=== PATIENT | female | born 1930 | race Caucasian/White ===

== ENCOUNTER 2017-10-06 02:45 | Inpatient (IN) | payer MEDICARE ==
[~2017-10-06] VITALS: Ht 160 cm; Wt 80.4 kg
[2017-10-06] MEDS ORDERED: MIRT15TA3 PO (03:35)
[2017-10-06] MEDS ORDERED: PROP15DR40 OU (03:35)
[2017-10-06] MEDS ORDERED: AMLO5TAB2 PO (03:35)
[2017-10-06] MEDS ORDERED: PRAM0.125 PO (03:35)
[2017-10-06] MEDS ORDERED: HYDR-963 PO (03:35)
[2017-10-06] MEDS ORDERED: DICL100G18 TP (03:35)
[2017-10-06] MEDS ORDERED: INSU100I13 SQ (03:35)
[2017-10-06] MEDS ORDERED: FURO40TA4 PO (03:35)
[2017-10-06] MEDS ORDERED: IMMU40VI IJ (03:35)
[2017-10-06] MEDS ORDERED: BUSP30TA PO (03:35)
[2017-10-06] MEDS ORDERED: ACET325T9 PO (03:35)
[2017-10-06] MEDS ORDERED: LORA-434 PO (03:35)
[2017-10-06] MEDS ORDERED: METO-247 PO (03:35)
[2017-10-06] MEDS ORDERED: ALBU8.5H8 INH (03:35)
[2017-10-06] MEDS ORDERED: SERT100T PO (03:35)
[2017-10-06] MEDS ORDERED: LOVA20TA2 PO (03:35)
[2017-10-06] MEDS ORDERED: NEOM10SO7 AD (03:35)
[2017-10-06] MEDS ORDERED: MELA3TAB2 PO (03:35)
[2017-10-06] MEDS ORDERED: PENT100C PO (03:35)
[2017-10-06] MEDS ORDERED: CRAN1TAB6 PO (03:35)
[2017-10-06] MEDS ORDERED: LACT1CAP6 PO (03:35)
[2017-10-06] MEDS ORDERED: PSYL1CAP4 PO (03:35)
[2017-10-06] MEDS ORDERED: PANT40TA5 PO (03:35)
[2017-10-06] MEDS ORDERED: POLY17PO5 PO (03:35)
[2017-10-06] MEDS ORDERED: IPRA3AMP NEB (03:35)
[2017-10-06 04:45] VITALS: BP 126/81
[2017-10-06] MEDS ORDERED: ACETAMINOPHEN 325 MG TABLET PO PRN ×2 (05:00→14:00)
[2017-10-06] MEDS ORDERED: MAG HYDROX/AL HYDROX/SIMETH 30 ML ORAL.SUSP PO PRN (05:00)
[2017-10-06] MEDS ORDERED: METHYL SALICYLATE/MENTHOL TOPICAL OINTMENT 29GM TUBE. TP PRN (05:00)
[2017-10-06] MEDS ORDERED: MAGNESIUM HYDROXIDE 2,400 MG/30 ML ORAL.SUSP. PO PRN (05:00)
[2017-10-06] MEDS ORDERED: LORazepam TOPICAL 0.5 MG/ML GEL TP PRN (05:45)
[2017-10-06] MEDS ORDERED: MAGN400C PO (05:49)
[2017-10-06] MEDS ORDERED: CALC-157 PO (05:49)
[2017-10-06 08:38] LABS: BASO # 0.1 x10^3/uL (0.0-0.2); BASO % 1 % (0-3); EOS # 0.2 x10^3/uL (0.0-0.7); EOS % 2 % (0-3); HEMATOCRIT 34.2 % (36.0-47.0); HEMOGLOBIN 11.2 g/dL (12.0-15.5); LYMPH # 1.8 x10^3/uL (1.0-4.8); LYMPH % 27 % (24-48); MEAN CORPUSCULAR HEMOGLOBIN 27 pg (25-35); MEAN CORPUSCULAR HGB CONC 33 g/dL (31-37); MEAN CORPUSCULAR VOLUME 82 fL (79-100); MONO # 0.8 x10^3/uL (0.0-1.1); MONO % 11 % (0-9); NEUT # 3.9 x10^3uL (1.8-7.7); NEUT % 59 % (31-73); PLATELET COUNT 344 x10^3/uL (140-400); RED BLOOD COUNT 4.15 x10^6/uL (3.50-5.40); RED CELL DISTRIBUTION WIDTH 15.9 % (11.5-14.5); WHITE BLOOD COUNT 6.7 x10^3/uL (4.0-11.0)
[2017-10-06] MEDS: busPIRone 15 MG TABLET. PO SCH ×2 (08:54→20:40)
[2017-10-06 09:00] LABS: ALBUMIN 2.8 g/dL (3.4-5.0); ALBUMIN/GLOBULIN RATIO 0.8 (1.0-1.7); CALCIUM 8.8 mg/dL (8.5-10.1); CREATININE 0.9 mg/dL (0.6-1.0); GFR 59.7; MAGNESIUM 1.7 mg/dL (1.8-2.4); POTASSIUM 3.2 mmol/L (3.5-5.1); TOTAL BILIRUBIN 0.5 mg/dL (0.2-1.0); TOTAL PROTEIN 6.3 g/dL (6.4-8.2)
[2017-10-06] MEDS ORDERED: SERTRALINE 100 MG TABLET. PO SCH (09:00)
[2017-10-06 11:09] LABS: THYROID STIM HORMONE (TSH) 3.186 uIU/mL (0.358-3.740)
[2017-10-06 13:09] LABS: T3 TOTAL 73 ng/dL (71-180); THYROXINE 6.4 ug/dL (4.5-12.0)
--- NOTE | 2017-10-06 13:58 | PDOC1 ---
History of Present Illness Reason for Visit: SI History of Present Illness Pt sent to [facility] for evaluation in SBH unit due to suicidal ideation and anxiety. Pt is a poor historian, and nursing staff/chart yields most of the information. Pt recently hospitalized at [facility]. She has mostly been c/o her back pain and requests to resume her PRN hydrocodone. Per nursing, she has been crying out inpain. Chief Complaint: SI Allergies: Coded Allergies: Cephalosporins (Verified Allergy, Intermediate, 10/06/17) Penicillins (Verified Allergy, Intermediate, 10/06/17) Sulfa (Sulfonamide Antibiotics) (Verified Allergy, Intermediate, 10/06/17) codeine (Verified Allergy, Intermediate, 10/06/17) lidocaine (Verified Allergy, Intermediate, 10/06/17) Past Medical History Cardiac: AFIB, HTN Pulmonary: Other (Sleep apnea) Psych: Anxiety, Depression Musculoskeletal: low back pain (Chronic) Endocrine: Diabetes Past Surgical History: No pertinent history Family History: No pertinent hx Past Social History Smoke: No Alcohol: none Drugs: None Review of Systems Review Of Systems ROS unobtainable due to pt's current mental status. Medications Current Medications Acetaminophen (Tylenol) 650 mg PRN Q6HRS PRN PO PAIN / TEMP Last administered on 10/06/17at 08:58; Start 10/06/17 at 05:00 Multi-Ingredient Ointment (Analgesic [place]) 1 marcio PRN QID PRN TP MUSCLE PAIN; Start 10/06/17 at 05:00 Al Hydroxide/Mg Hydroxide (Mylanta Plus Xs) 15 ml PRN AFTMEALHC PRN PO DYSPEPSIA; Start 10/06/17 at 05:00 Magnesium Hydroxide (Milk Of Magnesia) 2,400 mg PRN QHS PRN PO CONSTIPATION; Start 10/06/17 at 05:00 Lorazepam (Ativan) 1 mg PRN Q6HRS PRN TP ANXIETY / AGITATION; Start 10/06/17 at 05:45 Sertraline HCl (Zoloft) 100 mg DAILY PO Last administered on 10/06/17at 08:54; Start 10/06/17 at 09:00 Buspirone HCl (Buspar) 30 mg BID PO Last administered on 10/06/17at 08:54; Start 10/06/17 at 09:00 Melatonin 3 mg PRN QHS PRN PO INSOMNIA; Start 10/06/17 at 06:00 Mirtazapine (Remeron) 7.5 mg QHS PO ; Start 10/06/17 at 21:00 Olanzapine (ZyPREXA ZYDIS) 1.25 mg PRN Q2HR PRN PO PSYCHOSIS; Start 10/06/17 at 05:45 Active Scripts Active Reported Magnesium (Magnesium Oxide) 400 Mg Capsule 1 Cap PO DAILY Calcium 500 + Vit D 200 Tablet (Calcium Carbonate/Vitamin D3) 1 Each Tablet 1 Each PO DAILY Metamucil Plus Calcium Capsule (Psyllium Husk/Ca Carbonate) 1 Each Capsule 2 Each PO PRN BID PRN Miralax (Polyethylene Glycol 3350) 17 Gm Powd.pack 17 Gm PO PRN DAILY PRN Melatonin 3 Mg Tablet 3 Mg PO PRN QHS PRN Ativan (Lorazepam) 1 Mg Tablet 1 Mg PO PRN Q6HRS PRN Njsibhds-Jgkjkxzoa-Ql Ear Soln (Neomycin/Polymyxin B Sulf/Hc) 10 Ml Solution 2 Drp AD PRN QID PRN Duoneb 0.5-3(2.5) Mg/3 Ml (Albuterol/Ipratropium) 3 Ml Ampul.neb 3 Ml NEB PRN Q6HRS PRN Proair Hfa Inhaler (Albuterol Sulfate) 8.5 Gm Hfa.aer.ad 2 Puff INH PRN Q4HRS PRN [place] 10-325 Tablet (Hydrocodone Bit/Acetaminophen) 1 Each Tablet 1 Tab PO PRN Q6HRS PRN Tylenol (Acetaminophen) 325 Mg Tablet 650 Mg PO PRN Q4HRS PRN Zoloft (Sertraline Hcl) 100 Mg Tablet 100 Mg PO DAILY Elmiron (Pentosan Polysulfate Sodium) 100 Mg Capsule 100 Mg PO BID Mirapex (Pramipexole Di-Hcl) 0.125 Mg Tablet 0.125 Mg PO DAILY@1800 Pantoprazole Sodium 40 Mg Tablet.dr 40 Mg PO DAILYAC Systane 0.3-0.4% Eye Drops (Propylene Glycol/Peg 400) 15 Ml Drops 1 Drp OU BID Mirtazapine 15 Mg Tablet 7.5 Mg PO QHS Metoprolol Succinate ( Xl ) (Metoprolol Succinate) 100 Mg Tab.er.24h 100 Mg PO QHS Lovastatin 20 Mg Tablet 20 Mg PO QHS Probiotic (Lactobacillus Acidophilus) 1 Each Capsule 1 Each PO BIDWMEALS Lantus Solostar (Insulin Glargine,Hum.rec.anlog) 100 Unit/1 Ml Insuln.pen 10 Unit SQ DAILY Gamunex-C (Immune Glob,Dalia Caprylate(IgG)) 40 Gm/400 Ml Vial 30 Gm IJ MONTHLY last dose 09/04/17 Furosemide 40 Mg Tablet 40 Mg PO DAILY Voltaren (Diclofenac Sodium) 100 Gm Gel..gram. 1 Marcio TP QID Cranberry Tablet (Cranberry Conc/C/Bacill Coag) 1 Each Tablet 1 Each PO DAILY Buspirone Hcl 30 Mg Tablet 30 Mg PO BID Amlodipine Besylate 5 Mg Tablet 5 Mg PO DAILY Exam Vital Signs Vital Signs Date Time Temp Pulse Resp B/P (MAP) Pulse Ox O2 Delivery O2 Flow Rate FiO2 10/06/17 04:45 97.5 78 18 126/81 (96) 96 General Appearance: Alert, Cooperative, mild distress HEENT: Atraumatic, PERRLA, EOMI, Mucous membr. moist/pink, Other (Neck supple, no JVD) Respiratory: Clear to auscultation, Normal air movement Heart: Other (Irregularly irregular, no murmur noted) Abdominal: Normal bowel sounds, Soft, No tenderness, No hepatospenomegaly, No masses Extremities: No edema, Normal pulses, No tenderness/swelling Skin: No rashes Neuro: Other (NO grossly focal abnormalities) Psych/Mental Status: Other (Pt crying, states she must have a pain pill, she can't live with the pain.) Assessment/Plan Assessment/Plan 1. Depression w/ SI: Per Dr. Santiago. 2. Hypokalemia: Start KCL 20 meq BID since pt on daily Lasix. 3. DM: Resume home meds, ac/hs accuchecks. 4. Chronic back pain; Resume home dose of hydrocodone. 5. DVT proph: Pt is not on anticoagulation even with afib, would not recommend anticoagulation for DVT proph unless pt completely bed-bound COURSE Allergies Coded Allergies Type Severity Reaction Last Updated Verified Cephalosporins Allergy Intermediate 10/06/17 Yes Penicillins Allergy Intermediate 10/06/17 Yes Sulfa (Sulfonamide Antibiotics) Allergy Intermediate 10/06/17 Yes codeine Allergy Intermediate 10/06/17 Yes lidocaine Allergy Intermediate 10/06/17 Yes Laboratory Tests Test 10/06/17 08:00 10/06/17 08:13 White Blood Count 6.7 x10^3/uL (4.0-11.0) Red Blood Count 4.15 x10^6/uL (3.50-5.40) Hemoglobin 11.2 g/dL (12.0-15.5) Hematocrit 34.2 % (36.0-47.0) Mean Corpuscular Volume 82 fL (79-100) Mean Corpuscular Hemoglobin 27 pg (25-35) Mean Corpuscular Hemoglobin Concent 33 g/dL (31-37) Red Cell Distribution Width 15.9 % (11.5-14.5) Platelet Count 344 x10^3/uL (140-400) Neutrophils (%) (Auto) 59 % (31-73) Lymphocytes (%) (Auto) 27 % (24-48) Monocytes (%) (Auto) 11 % (0-9) Eosinophils (%) (Auto) 2 % (0-3) Basophils (%) (Auto) 1 % (0-3) Neutrophils # (Auto) 3.9 x10^3uL (1.8-7.7) Lymphocytes # (Auto) 1.8 x10^3/uL (1.0-4.8) Monocytes # (Auto) 0.8 x10^3/uL (0.0-1.1) Eosinophils # (Auto) 0.2 x10^3/uL (0.0-0.7) Basophils # (Auto) 0.1 x10^3/uL (0.0-0.2) Sodium Level 137 mmol/L (136-145) Potassium Level 3.2 mmol/L (3.5-5.1) Chloride Level 99 mmol/L (98-107) Carbon Dioxide Level 31 mmol/L (21-32) Anion Gap 7 (6-14) Blood Urea Nitrogen 15 mg/dL (7-20) Creatinine 0.9 mg/dL (0.6-1.0) Estimated GFR (Cockcroft-Gault) 59.7 BUN/Creatinine Ratio 17 (6-20) Glucose Level 142 mg/dL (70-99) Calcium Level 8.8 mg/dL (8.5-10.1) Magnesium Level 1.7 mg/dL (1.8-2.4) Iron Level 21 ug/dL (50-170) Total Iron Binding Capacity 378 ug/dL (250-450) Iron Saturation 6 % (15-34) Total Bilirubin 0.5 mg/dL (0.2-1.0) Aspartate Amino Transf (AST/SGOT) 13 U/L (15-37) Alanine Aminotransferase (ALT/SGPT) 15 U/L (14-59) Alkaline Phosphatase 49 U/L (46-116) Total Protein 6.3 g/dL (6.4-8.2) Albumin 2.8 g/dL (3.4-5.0) Albumin/Globulin Ratio 0.8 (1.0-1.7) Triglycerides Level 97 mg/dL (0-150) Cholesterol Level 133 mg/dL (0-200) LDL Cholesterol, Calculated 71 mg/dL (0-100) VLDL Cholesterol, Calculated 19 mg/dL (0-40) Non-HDL Cholesterol Calculated 90 mg/dL (0-129) HDL Cholesterol 43 mg/dL (40-60) Cholesterol/HDL Ratio 3.0 Thyroid Stimulating Hormone (TSH) 3.186 uIU/mL (0.358-3.740) Thyroxine (T4) 6.4 ug/dL (4.5-12.0) Total Triiodothyronine 73 ng/dL (71-180) Glucose (Fingerstick) 144 mg/dL (70-99) Current Medications Medications (Trade) Dose Ordered Sig/Shy Route PRN Reason Start Time Stop Time Status Last Admin Dose Admin Acetaminophen (Tylenol) 650 mg PRN Q6HRS PRN PO PAIN / TEMP 10/06/17 05:00 10/06/17 08:58 Multi-Ingredient Ointment (Analgesic [place]) 1 marcio PRN QID PRN TP MUSCLE PAIN 10/06/17 05:00 Al Hydroxide/Mg Hydroxide (Mylanta Plus Xs) 15 ml PRN AFTMEALHC PRN PO DYSPEPSIA 10/06/17 05:00 Magnesium Hydroxide (Milk Of Magnesia) 2,400 mg PRN QHS PRN PO CONSTIPATION 10/06/17 05:00 Lorazepam (Ativan) 1 mg PRN Q6HRS PRN TP ANXIETY / AGITATION 10/06/17 05:45 Sertraline HCl (Zoloft) 100 mg DAILY PO 10/06/17 09:00 10/06/17 08:54 Buspirone HCl (Buspar) 30 mg BID PO 10/06/17 09:00 10/06/17 08:54 Melatonin 3 mg PRN QHS PRN PO INSOMNIA 10/06/17 06:00 Mirtazapine (Remeron) 7.5 mg QHS PO 10/06/17 21:00 Olanzapine (ZyPREXA ZYDIS) 1.25 mg PRN Q2HR PRN PO PSYCHOSIS 10/06/17 05:45 Vital Signs Date Time Temp Pulse Resp B/P (MAP) Pulse Ox O2 Delivery O2 Flow Rate FiO2 10/06/17 04:45 97.5 78 18 126/81 (96) 96 CORBIN ROGERS MD October 06, 2017 13:58
[2017-10-06] MEDS ORDERED: ALBUTEROL SULFATE 8GM INHALER. INH PRN (14:00)
[2017-10-06] MEDS ORDERED: NEOMYCIN AD PRN (14:00)
[2017-10-06] MEDS ORDERED: IMMUNE GLOBULIN IJ SCH (14:00)
[2017-10-06] MEDS ORDERED: [UNRECOGNIZED DRUG - OTHER] AD PRN (14:00)
[2017-10-06] MEDS ORDERED: HYDROCORTISONE AD PRN (14:00)
[2017-10-06] MEDS ORDERED: POLYMYXIN B AD PRN (14:00)
[2017-10-06] MEDS ORDERED: IPRATRPIUM/ALBUTEROL 0.5/2.5MG 3 ML NEBU. NEB PRN (14:00)
[2017-10-06] MEDS: POTASSIUM CHLORIDE 20 MEQ TABLET.ER. PO SCH ×2 (14:12→21:37)
[2017-10-06] MEDS: HYDROcodone/APAP 10/325 1 TAB TABLET PO PRN ×2 (14:12→20:46)
[2017-10-06] MEDS ORDERED: ALBUTEROL SULFATE 2.5 MG/3 ML NEBU. NEB PRN (14:15)
[2017-10-06] MEDS ORDERED: POLYETHYLENE GLYCOL 3350 17 GM PACKET. PO PRN (14:30)
[2017-10-06 16:05] VITALS: BP 92/63
[2017-10-06 17:07] LABS: HEMOGLOBIN A1C 7.4 % (4.8-5.6)
[2017-10-06] MEDS: LACTOBACILLUS RHAMNOSUS GG 1 CAPSULE. PO SCH (17:29)
[2017-10-06] MEDS: PRAMIPEXOLE 0.25 MG TABLET. PO SCH (17:29)
[2017-10-06] MEDS: DICLOFENAC SODIUM 1% TOPICAL GEL 100GM TUBE. TP SCH ×2 (17:30→21:00)
--- NOTE | 2017-10-06 19:17 | PDOC ---
Exam Note: Red Note: Please also refer to the separate dictated note~for this date of service dictated separately.~Patient seen individually. Discussed the patient with Nursing staff reviewed the chart.~Reviewed interim history and current functioning. Reviewed vital signs,~Labs/ Radiology~and current medications noted below. Continue current treatment with the changes noted in the dictated addendum note Assessment: Vital Signs: Vital Signs Date Time Temp Pulse Resp B/P (MAP) Pulse Ox O2 Delivery O2 Flow Rate FiO2 10/06/17 16:07 18 10/06/17 16:05 98.2 72 92/63 (73) 94 Labs: Laboratory Tests Test 10/06/17 08:00 10/06/17 08:13 White Blood Count 6.7 x10^3/uL (4.0-11.0) Red Blood Count 4.15 x10^6/uL (3.50-5.40) Hemoglobin 11.2 g/dL (12.0-15.5) L Hematocrit 34.2 % (36.0-47.0) L Mean Corpuscular Volume 82 fL (79-100) Mean Corpuscular Hemoglobin 27 pg (25-35) Mean Corpuscular Hemoglobin Concent 33 g/dL (31-37) Red Cell Distribution Width 15.9 % (11.5-14.5) H Platelet Count 344 x10^3/uL (140-400) Neutrophils (%) (Auto) 59 % (31-73) Lymphocytes (%) (Auto) 27 % (24-48) Monocytes (%) (Auto) 11 % (0-9) H Eosinophils (%) (Auto) 2 % (0-3) Basophils (%) (Auto) 1 % (0-3) Neutrophils # (Auto) 3.9 x10^3uL (1.8-7.7) Lymphocytes # (Auto) 1.8 x10^3/uL (1.0-4.8) Monocytes # (Auto) 0.8 x10^3/uL (0.0-1.1) Eosinophils # (Auto) 0.2 x10^3/uL (0.0-0.7) Basophils # (Auto) 0.1 x10^3/uL (0.0-0.2) Sodium Level 137 mmol/L (136-145) Potassium Level 3.2 mmol/L (3.5-5.1) L Chloride Level 99 mmol/L (98-107) Carbon Dioxide Level 31 mmol/L (21-32) Anion Gap 7 (6-14) Blood Urea Nitrogen 15 mg/dL (7-20) Creatinine 0.9 mg/dL (0.6-1.0) Estimated GFR (Cockcroft-Gault) 59.7 BUN/Creatinine Ratio 17 (6-20) Glucose Level 142 mg/dL (70-99) H Hemoglobin A1c 7.4 % (4.8-5.6) H Calcium Level 8.8 mg/dL (8.5-10.1) Magnesium Level 1.7 mg/dL (1.8-2.4) L Iron Level 21 ug/dL (50-170) L Total Iron Binding Capacity 378 ug/dL (250-450) Iron Saturation 6 % (15-34) L Total Bilirubin 0.5 mg/dL (0.2-1.0) Aspartate Amino Transferase (AST) 13 U/L (15-37) L Alanine Aminotransferase (ALT) 15 U/L (14-59) Alkaline Phosphatase 49 U/L (46-116) Total Protein 6.3 g/dL (6.4-8.2) L Albumin 2.8 g/dL (3.4-5.0) L Albumin/Globulin Ratio 0.8 (1.0-1.7) L Triglycerides Level 97 mg/dL (0-150) Cholesterol Level 133 mg/dL (0-200) LDL Cholesterol, Calculated 71 mg/dL (0-100) VLDL Cholesterol, Calculated 19 mg/dL (0-40) Non-HDL Cholesterol Calculated 90 mg/dL (0-129) HDL Cholesterol 43 mg/dL (40-60) Cholesterol/HDL Ratio 3.0 Thyroid Stimulating Hormone (TSH) 3.186 uIU/mL (0.358-3.740) Thyroxine (T4) 6.4 ug/dL (4.5-12.0) Total Triiodothyronine (TT3) 73 ng/dL (71-180) Rapid Plasma Reagin Pending Glucose (Fingerstick) 144 mg/dL (70-99) H Current Medications: Meds: Current Medications Acetaminophen (Tylenol) 650 mg PRN Q6HRS PRN PO PAIN / TEMP Last administered on 10/06/17at 08:58; Start 10/06/17 at 05:00 Multi-Ingredient Ointment (Analgesic [place]) 1 marcio PRN QID PRN TP MUSCLE PAIN; Start 10/06/17 at 05:00 Al Hydroxide/Mg Hydroxide (Mylanta Plus Xs) 15 ml PRN AFTMEALHC PRN PO DYSPEPSIA; Start 10/06/17 at 05:00 Magnesium Hydroxide (Milk Of Magnesia) 2,400 mg PRN QHS PRN PO CONSTIPATION; Start 10/06/17 at 05:00 Lorazepam (Ativan) 1 mg PRN Q6HRS PRN TP ANXIETY / AGITATION; Start 10/06/17 at 05:45 Sertraline HCl (Zoloft) 100 mg DAILY PO Last administered on 10/06/17at 08:54; Start 10/06/17 at 09:00; Stop 10/06/17 at 18:49; Status DC Buspirone HCl (Buspar) 30 mg BID PO Last administered on 10/06/17at 08:54; Start 10/06/17 at 09:00 Melatonin 3 mg PRN QHS PRN PO INSOMNIA; Start 10/06/17 at 06:00 Mirtazapine (Remeron) 7.5 mg QHS PO ; Start 10/06/17 at 21:00 Olanzapine (ZyPREXA ZYDIS) 1.25 mg PRN Q2HR PRN PO PSYCHOSIS; Start 10/06/17 at 05:45 Potassium Chloride (Klor-Con) 20 meq BID PO Last administered on 10/06/17at 14: 12; Start 10/06/17 at 14:00 Acetaminophen (Tylenol) 650 mg PRN Q4HRS PRN PO PAIN / TEMP; Start 10/06/17 at 14:00 Albuterol Sulfate (Ventolin Hfa) 2 puff PRN Q4HRS PRN INH SHORTNESS OF BREATH; Start 10/06/17 at 14:00; Status UNV Calcium/Vitamin D (Oscal D 500mg/ 200uts) 1 tab DAILY PO ; Start 10/07/17 at 09: 00 Diclofenac Sodium (Voltaren) 1 marcio QID TP Last administered on 10/06/17at 17:30 ; Start 10/06/17 at 17:00 Insulin Glargine (Lantus) 10 units DAILY SQ ; Start 10/07/17 at 09:00 Albuterol/ Ipratropium (Duoneb) 3 ml PRN Q6HRS PRN NEB WHEEZING; Start at 14:00 Pentosan Polysulfate Sodium (Elmiron) 100 mg BID PO ; Start 10/06/17 at 21:00; Status UNV Amlodipine Besylate (Norvasc) 5 mg DAILY PO ; Start 10/07/17 at 09:00 Non-Formulary Medication (Cranberry Conc/ C/Bacill Coag (Cranberry Tablet)) 1 each DAILY PO ; Start 10/07/17 at 09:00; Status UNV Furosemide (Lasix) 40 mg DAILY PO ; Start 10/07/17 at 09:00 Acetaminophen/ Hydrocodone Bitart (Lortab 10/325) 1 tab PRN Q6HRS PRN PO PAIN Last administered on 10/06/17at 14:12; Start 10/06/17 at 14:15 Non-Formulary Medication (Immune Glob,Dalia Caprylate(IgG) (Gamunex-C)) 30 gm monthly IJ ; Start 10/06/17 at 14:00; Status UNV Lactobacillus Rhamnosus (Culturelle) 1 cap BIDWMEALS PO Last administered on 05/14at 17:29; Start 10/06/17 at 17:00 Atorvastatin Calcium (Lipitor) 5 mg QHS PO ; Start 10/06/17 at 21:00 Magnesium Oxide (Magnesium Oxide) 400 mg DAILY PO ; Start 10/07/17 at 09:00 Metoprolol Succinate (Toprol Xl) 100 mg HS PO ; Start 10/06/17 at 21:00 Non-Formulary Medication (Neomycin/ Polymyxin B Sulf/ Hc (Jcmkinaj-Apxjszwyh-Qa Ear Soln)) 2 drp PRN QID PRN AD ear infections; Start 10/06/17 at 14:00; Status UNV Pantoprazole Sodium (Protonix) 40 mg DAILYAC PO ; Start 10/07/17 at 07:30 Polyethylene Glycol (miraLAX) 17 gm PRN DAILY PRN PO CONSTIPATION; Start at 14:30 Pramipexole Dihydrochloride (miraPEX) 0.125 mg DAILY@1800 PO Last administered on 10/06/17at 17:29; Start 10/06/17 at 18:00 Artificial Tears (Artificial Tears) 1 drop BID OU ; Start 10/06/17 at 21:00 Psyllium Hydrophilic Mucilloid (Metamucil) 1 pkt PRN BID PRN PO CONSTIPATION; Start 10/07/17 at 09:00 Albuterol Sulfate (Ventolin) 2.5 mg PRN Q4HRS PRN NEB SHORTNESS OF BREATH; Start 10/06/17 at 14:15 Duloxetine HCl (Cymbalta) 30 mg DAILY PO ; Start 10/07/17 at 09:00; Stop at 08:59 Duloxetine HCl (Cymbalta) 60 mg DAILY PO ; Start 10/10/17 at 09:00 Active Scripts Active Reported Magnesium (Magnesium Oxide) 400 Mg Capsule 1 Cap PO DAILY Calcium 500 + Vit D 200 Tablet (Calcium Carbonate/Vitamin D3) 1 Each Tablet 1 Each PO DAILY Metamucil Plus Calcium Capsule (Psyllium Husk/Ca Carbonate) 1 Each Capsule 2 Each PO PRN BID PRN Miralax (Polyethylene Glycol 3350) 17 Gm Powd.pack 17 Gm PO PRN DAILY PRN Melatonin 3 Mg Tablet 3 Mg PO PRN QHS PRN Ativan (Lorazepam) 1 Mg Tablet 1 Mg PO PRN Q6HRS PRN Gpkuajfl-Whygzdoac-Ua Ear Soln (Neomycin/Polymyxin B Sulf/Hc) 10 Ml Solution 2 Drp AD PRN QID PRN Duoneb 0.5-3(2.5) Mg/3 Ml (Albuterol/Ipratropium) 3 Ml Ampul.neb 3 Ml NEB PRN Q6HRS PRN Proair Hfa Inhaler (Albuterol Sulfate) 8.5 Gm Hfa.aer.ad 2 Puff INH PRN Q4HRS PRN [place] 10-325 Tablet (Hydrocodone Bit/Acetaminophen) 1 Each Tablet 1 Tab PO PRN Q6HRS PRN Tylenol (Acetaminophen) 325 Mg Tablet 650 Mg PO PRN Q4HRS PRN Zoloft (Sertraline Hcl) 100 Mg Tablet 100 Mg PO DAILY Elmiron (Pentosan Polysulfate Sodium) 100 Mg Capsule 100 Mg PO BID Mirapex (Pramipexole Di-Hcl) 0.125 Mg Tablet 0.125 Mg PO DAILY@1800 Pantoprazole Sodium 40 Mg Tablet.dr 40 Mg PO DAILYAC Systane 0.3-0.4% Eye Drops (Propylene Glycol/Peg 400) 15 Ml Drops 1 Drp OU BID Mirtazapine 15 Mg Tablet 7.5 Mg PO QHS Metoprolol Succinate ( Xl ) (Metoprolol Succinate) 100 Mg Tab.er.24h 100 Mg PO QHS Lovastatin 20 Mg Tablet 20 Mg PO QHS Probiotic (Lactobacillus Acidophilus) 1 Each Capsule 1 Each PO BIDWMEALS Lantus Solostar (Insulin Glargine,Hum.rec.anlog) 100 Unit/1 Ml Insuln.pen 10 Unit SQ DAILY Gamunex-C (Immune Glob,Dalia Caprylate(IgG)) 40 Gm/400 Ml Vial 30 Gm IJ MONTHLY last dose 09/04/17 Furosemide 40 Mg Tablet 40 Mg PO DAILY Voltaren (Diclofenac Sodium) 100 Gm Gel..gram. 1 Marcio TP QID Cranberry Tablet (Cranberry Conc/C/Bacill Coag) 1 Each Tablet 1 Each PO DAILY Buspirone Hcl 30 Mg Tablet 30 Mg PO BID Amlodipine Besylate 5 Mg Tablet 5 Mg PO DAILY I have reviewed the current psychotropics carefully including drug interactions. Risk benefit ratio favors no change other than as noted in my dictated progress note. Diagnosis: Problems: (1) Anxiety disorder (2) Impulse control disorder (3) Major depressive disorder, recurrent episode NICOLE EDWARDS MD October 06, 2017 19:17
[2017-10-06] MEDS: MELATONIN 3 MG TABLET PO PRN (20:46)
--- NOTE | 2017-10-06 20:56 | HP ---
ADMIT DATE: 10/06/2017 This note covers the elements not covered in my initial note 10/06/2017. I have discussed about the patient with the nursing staff this evening as I met with her, and several times prior to this after she presented to the [facility] Emergency Room, brought in by her family from her home in [facility] on account of worsening symptoms of depression, suicidal ideation, and worsening anxiety. She had failed outpatient psychiatric interventions, was deemed a potential danger to herself due to the suicidal ideation unmanageable, referred for inpatient psychiatric stabilization. CHIEF COMPLAINT: "I live by myself. No, I do not drive. Yes, I have been depressed." HISTORY OF PRESENT ILLNESS: The patient has a history of major depressive disorder with worsening mood symptoms and the onset of suicidal ideation over the past couple of days prior to admission. Reportedly, she was living at home, initially developed pneumonia and once this was treated, she went to a usp and at [facility] in [place] and then back home, became depressed, was sent back to [facility], then was voicing suicidal ideation and sent to the Emergency Room. She complains of some sleep and appetite changes and states she has chronic back pain, which makes her mood worse. Family described her as being grumpy most of her life. As part of the suicidal ideation, she had made statements that "if I had a gun, I would use it." No clear symptoms of bipolar disorder. She has had some short-term memory deficits, but cognitively otherwise reasonably intact. PAST PSYCHIATRIC HISTORY: As above. PAST MEDICAL HISTORY: Atrial fibrillation, diabetes mellitus, hypertension, back pain, sleep apnea. ALLERGIES: CODEINE, LIDOCAINE, PENICILLIN, SULFA, CEPHALOSPORINS. CODE STATUS: Full code. Accu-Chek before noon/at bedtime. DIET: Regular, ADA, ambulates with walker. CURRENT PSYCHOTROPICS: BuSpar 30 mg b.i.d., Remeron 7.5 mg at bedtime, Zoloft 100 mg a day, Ativan p.r.n., melatonin 3 mg at bedtime p.r.n. FAMILY HISTORY: Noncontributory. SOCIAL HISTORY: No alcohol, drug abuse, physical, sexual or elder abuse history is noted. Not known to be a perpetrator. Reaction to hospitalization, the patient accepting of it. ASSETS: Supportive family. MENTAL STATUS EXAMINATION: The patient was seen individually in her room. She is oriented to herself, situation, knew it was on 01/06/2018. She is quite hard of hearing. Speech is otherwise coherent, has some latency. Abstraction fair, computation impaired, language function intact, attention span short. Mood and affect is depressed, anxious, somewhat suspicious at times. She denies active current suicidal ideation. IMPRESSION: Major depressive disorder, recurrent; anxiety disorder, unspecified; impulse control disorder, unspecified. Rest unchanged from above including hard of hearing. TREATMENT PLAN: Admit to geropsychiatry unit at [facility]. I will see the patient daily individually from a psychiatric standpoint, medical followup per Dr. Delgado/Dr. Ramirez. The patient seems to have failed treatment on Zoloft 100 mg a day and given her chronic pain symptoms, back pain started on Cymbalta 30 mg a day as a serotonin and norepinephrine reuptake inhibitor that should be more efficacious antidepressant and also help with the chronic back pain. We will increase it to 60 mg a day in 3 days. I will see her daily individually. Estimated length of stay 10 to 12 days. DISPOSITION: Would be back to [facility]. NICOLE EDWARDS MD DR: RAISA/dave JOB#: [id number] / [id number]
[2017-10-06] MEDS: PENTOSAN POLYSULFATE SODIUM 100 MG CAPSULE. PO SCH (21:00)
[2017-10-06] MEDS: POLYVINYL ALCOHOL 1.4% OPHTH SOLUTION 15ML BOTTLE. OU SCH (21:00)
[2017-10-06] MEDS: ATORVASTATIN CALCIUM 10 MG TABLET. PO SCH (21:37)
[2017-10-06] MEDS: MIRTAZAPINE 7.5 MG TABLET. PO SCH (21:38)
[2017-10-06] MEDS: METOPROLOL SUCC 24HR ER 50 MG TAB.ER.24H. PO SCH (21:45)
--- NOTE | 2017-10-06 22:49 | PDOC ---
Exam Note: Red Note: Please also refer to the separate dictated note~for this date of service dictated separately.~Patient seen individually. Discussed the patient with Nursing staff reviewed the chart.~Reviewed interim history and current functioning. Reviewed vital signs,~Labs/ Radiology~and current medications noted below. Continue current treatment with the changes noted in the dictated addendum note Assessment: Vital Signs: Vital Signs Date Time Temp Pulse Resp B/P (MAP) Pulse Ox O2 Delivery O2 Flow Rate FiO2 10/06/17 21:45 76 134/72 10/06/17 20:46 Nasal Cannula 10/06/17 16:07 18 10/06/17 16:05 98.2 94 Labs: Laboratory Tests Test 10/06/17 08:00 10/06/17 08:13 White Blood Count 6.7 x10^3/uL (4.0-11.0) Red Blood Count 4.15 x10^6/uL (3.50-5.40) Hemoglobin 11.2 g/dL (12.0-15.5) L Hematocrit 34.2 % (36.0-47.0) L Mean Corpuscular Volume 82 fL (79-100) Mean Corpuscular Hemoglobin 27 pg (25-35) Mean Corpuscular Hemoglobin Concent 33 g/dL (31-37) Red Cell Distribution Width 15.9 % (11.5-14.5) H Platelet Count 344 x10^3/uL (140-400) Neutrophils (%) (Auto) 59 % (31-73) Lymphocytes (%) (Auto) 27 % (24-48) Monocytes (%) (Auto) 11 % (0-9) H Eosinophils (%) (Auto) 2 % (0-3) Basophils (%) (Auto) 1 % (0-3) Neutrophils # (Auto) 3.9 x10^3uL (1.8-7.7) Lymphocytes # (Auto) 1.8 x10^3/uL (1.0-4.8) Monocytes # (Auto) 0.8 x10^3/uL (0.0-1.1) Eosinophils # (Auto) 0.2 x10^3/uL (0.0-0.7) Basophils # (Auto) 0.1 x10^3/uL (0.0-0.2) Sodium Level 137 mmol/L (136-145) Potassium Level 3.2 mmol/L (3.5-5.1) L Chloride Level 99 mmol/L (98-107) Carbon Dioxide Level 31 mmol/L (21-32) Anion Gap 7 (6-14) Blood Urea Nitrogen 15 mg/dL (7-20) Creatinine 0.9 mg/dL (0.6-1.0) Estimated GFR (Cockcroft-Gault) 59.7 BUN/Creatinine Ratio 17 (6-20) Glucose Level 142 mg/dL (70-99) H Hemoglobin A1c 7.4 % (4.8-5.6) H Calcium Level 8.8 mg/dL (8.5-10.1) Magnesium Level 1.7 mg/dL (1.8-2.4) L Iron Level 21 ug/dL (50-170) L Total Iron Binding Capacity 378 ug/dL (250-450) Iron Saturation 6 % (15-34) L Total Bilirubin 0.5 mg/dL (0.2-1.0) Aspartate Amino Transferase (AST) 13 U/L (15-37) L Alanine Aminotransferase (ALT) 15 U/L (14-59) Alkaline Phosphatase 49 U/L (46-116) Total Protein 6.3 g/dL (6.4-8.2) L Albumin 2.8 g/dL (3.4-5.0) L Albumin/Globulin Ratio 0.8 (1.0-1.7) L Triglycerides Level 97 mg/dL (0-150) Cholesterol Level 133 mg/dL (0-200) LDL Cholesterol, Calculated 71 mg/dL (0-100) VLDL Cholesterol, Calculated 19 mg/dL (0-40) Non-HDL Cholesterol Calculated 90 mg/dL (0-129) HDL Cholesterol 43 mg/dL (40-60) Cholesterol/HDL Ratio 3.0 Thyroid Stimulating Hormone (TSH) 3.186 uIU/mL (0.358-3.740) Thyroxine (T4) 6.4 ug/dL (4.5-12.0) Total Triiodothyronine (TT3) 73 ng/dL (71-180) Rapid Plasma Reagin Pending Glucose (Fingerstick) 144 mg/dL (70-99) H Current Medications: Meds: Current Medications Acetaminophen (Tylenol) 650 mg PRN Q6HRS PRN PO PAIN / TEMP Last administered on 10/06/17at 08:58; Start 10/06/17 at 05:00 Multi-Ingredient Ointment (Analgesic [place]) 1 marcio PRN QID PRN TP MUSCLE PAIN; Start 10/06/17 at 05:00 Al Hydroxide/Mg Hydroxide (Mylanta Plus Xs) 15 ml PRN AFTMEALHC PRN PO DYSPEPSIA; Start 10/06/17 at 05:00 Magnesium Hydroxide (Milk Of Magnesia) 2,400 mg PRN QHS PRN PO CONSTIPATION; Start 10/06/17 at 05:00 Lorazepam (Ativan) 1 mg PRN Q6HRS PRN TP ANXIETY / AGITATION; Start 10/06/17 at 05:45 Sertraline HCl (Zoloft) 100 mg DAILY PO Last administered on 10/06/17at 08:54; Start 10/06/17 at 09:00; Stop 10/06/17 at 18:49; Status DC Buspirone HCl (Buspar) 30 mg BID PO Last administered on 10/06/17at 20:40; Start 10/06/17 at 09:00 Melatonin 3 mg PRN QHS PRN PO INSOMNIA Last administered on 10/06/17at 20:46; Start 10/06/17 at 06:00 Mirtazapine (Remeron) 7.5 mg QHS PO Last administered on 10/06/17at 21:38; Start 10/06/17 at 21:00 Olanzapine (ZyPREXA ZYDIS) 1.25 mg PRN Q2HR PRN PO PSYCHOSIS; Start 10/06/17 at 05:45 Potassium Chloride (Klor-Con) 20 meq BID PO Last administered on 10/06/17at 21: 37; Start 10/06/17 at 14:00 Acetaminophen (Tylenol) 650 mg PRN Q4HRS PRN PO PAIN / TEMP; Start 10/06/17 at 14:00 Albuterol Sulfate (Ventolin Hfa) 2 puff PRN Q4HRS PRN INH SHORTNESS OF BREATH; Start 10/06/17 at 14:00; Status UNV Calcium/Vitamin D (Oscal D 500mg/ 200uts) 1 tab DAILY PO ; Start 10/07/17 at 09: 00 Diclofenac Sodium (Voltaren) 1 marcio QID TP Last administered on 10/06/17at 17:30 ; Start 10/06/17 at 17:00 Insulin Glargine (Lantus) 10 units DAILY SQ ; Start 10/07/17 at 09:00 Albuterol/ Ipratropium (Duoneb) 3 ml PRN Q6HRS PRN NEB WHEEZING; Start at 14:00 Pentosan Polysulfate Sodium (Elmiron) 100 mg BID PO ; Start 10/06/17 at 21:00; Status UNV Amlodipine Besylate (Norvasc) 5 mg DAILY PO ; Start 10/07/17 at 09:00 Non-Formulary Medication (Cranberry Conc/ C/Bacill Coag (Cranberry Tablet)) 1 each DAILY PO ; Start 10/07/17 at 09:00; Status UNV Furosemide (Lasix) 40 mg DAILY PO ; Start 10/07/17 at 09:00 Acetaminophen/ Hydrocodone Bitart (Lortab 10/325) 1 tab PRN Q6HRS PRN PO PAIN Last administered on 10/06/17at 20:46; Start 10/06/17 at 14:15 Non-Formulary Medication (Immune Glob,Dalia Caprylate(IgG) (Gamunex-C)) 30 gm monthly IJ ; Start 10/06/17 at 14:00; Status UNV Lactobacillus Rhamnosus (Culturelle) 1 cap BIDWMEALS PO Last administered on 05/14at 17:29; Start 10/06/17 at 17:00 Atorvastatin Calcium (Lipitor) 5 mg QHS PO Last administered on 10/06/17at 21:37 ; Start 10/06/17 at 21:00 Magnesium Oxide (Magnesium Oxide) 400 mg DAILY PO ; Start 10/07/17 at 09:00 Metoprolol Succinate (Toprol Xl) 100 mg HS PO Last administered on 10/06/17at 21 :45; Start 10/06/17 at 21:00 Non-Formulary Medication (Neomycin/ Polymyxin B Sulf/ Hc (Hjpowzrw-Euitwryyq-Xd Ear Soln)) 2 drp PRN QID PRN AD ear infections; Start 10/06/17 at 14:00; Status UNV Pantoprazole Sodium (Protonix) 40 mg DAILYAC PO ; Start 5/13/18 at 07:30 Polyethylene Glycol (miraLAX) 17 gm PRN DAILY PRN PO CONSTIPATION; Start at 14:30 Pramipexole Dihydrochloride (miraPEX) 0.125 mg DAILY@1800 PO Last administered on 10/06/17at 17:29; Start 10/06/17 at 18:00 Artificial Tears (Artificial Tears) 1 drop BID OU ; Start 10/06/17 at 21:00 Psyllium Hydrophilic Mucilloid (Metamucil) 1 pkt PRN BID PRN PO CONSTIPATION; Start 10/07/17 at 09:00 Albuterol Sulfate (Ventolin) 2.5 mg PRN Q4HRS PRN NEB SHORTNESS OF BREATH; Start 10/06/17 at 14:15 Duloxetine HCl (Cymbalta) 30 mg DAILY PO ; Start 10/07/17 at 09:00; Stop at 08:59 Duloxetine HCl (Cymbalta) 60 mg DAILY PO ; Start 10/10/17 at 09:00 Active Scripts Active Reported Magnesium (Magnesium Oxide) 400 Mg Capsule 1 Cap PO DAILY Calcium 500 + Vit D 200 Tablet (Calcium Carbonate/Vitamin D3) 1 Each Tablet 1 Each PO DAILY Metamucil Plus Calcium Capsule (Psyllium Husk/Ca Carbonate) 1 Each Capsule 2 Each PO PRN BID PRN Miralax (Polyethylene Glycol 3350) 17 Gm Powd.pack 17 Gm PO PRN DAILY PRN Melatonin 3 Mg Tablet 3 Mg PO PRN QHS PRN Ativan (Lorazepam) 1 Mg Tablet 1 Mg PO PRN Q6HRS PRN Ulqsfrre-Qcjvrekid-Zs Ear Soln (Neomycin/Polymyxin B Sulf/Hc) 10 Ml Solution 2 Drp AD PRN QID PRN Duoneb 0.5-3(2.5) Mg/3 Ml (Albuterol/Ipratropium) 3 Ml Ampul.neb 3 Ml NEB PRN Q6HRS PRN Proair Hfa Inhaler (Albuterol Sulfate) 8.5 Gm Hfa.aer.ad 2 Puff INH PRN Q4HRS PRN [place] 10-325 Tablet (Hydrocodone Bit/Acetaminophen) 1 Each Tablet 1 Tab PO PRN Q6HRS PRN Tylenol (Acetaminophen) 325 Mg Tablet 650 Mg PO PRN Q4HRS PRN Zoloft (Sertraline Hcl) 100 Mg Tablet 100 Mg PO DAILY Elmiron (Pentosan Polysulfate Sodium) 100 Mg Capsule 100 Mg PO BID Mirapex (Pramipexole Di-Hcl) 0.125 Mg Tablet 0.125 Mg PO DAILY@1800 Pantoprazole Sodium 40 Mg Tablet.dr 40 Mg PO DAILYAC Systane 0.3-0.4% Eye Drops (Propylene Glycol/Peg 400) 15 Ml Drops 1 Drp OU BID Mirtazapine 15 Mg Tablet 7.5 Mg PO QHS Metoprolol Succinate ( Xl ) (Metoprolol Succinate) 100 Mg Tab.er.24h 100 Mg PO QHS Lovastatin 20 Mg Tablet 20 Mg PO QHS Probiotic (Lactobacillus Acidophilus) 1 Each Capsule 1 Each PO BIDWMEALS Lantus Solostar (Insulin Glargine,Hum.rec.anlog) 100 Unit/1 Ml Insuln.pen 10 Unit SQ DAILY Gamunex-C (Immune Glob,Dalia Caprylate(IgG)) 40 Gm/400 Ml Vial 30 Gm IJ MONTHLY last dose 09/04/17 Furosemide 40 Mg Tablet 40 Mg PO DAILY Voltaren (Diclofenac Sodium) 100 Gm Gel..gram. 1 Marcio TP QID Cranberry Tablet (Cranberry Conc/C/Bacill Coag) 1 Each Tablet 1 Each PO DAILY Buspirone Hcl 30 Mg Tablet 30 Mg PO BID Amlodipine Besylate 5 Mg Tablet 5 Mg PO DAILY I have reviewed the current psychotropics carefully including drug interactions. Risk benefit ratio favors no change other than as noted in my dictated progress note. Diagnosis: Problems: (1) Anxiety disorder (2) Impulse control disorder (3) Major depressive disorder, recurrent episode NICOLE EDWARDS MD October 06, 2017 22:49
[2017-10-07] MEDS: HYDROcodone/APAP 10/325 1 TAB TABLET PO PRN ×2 (04:30→11:24)
[2017-10-07 05:32] VITALS: BP 128/88
[2017-10-07 08:59] LABS: GFR 52.8
[2017-10-07] MEDS ORDERED: [UNRECOGNIZED DRUG - OTHER] PO SCH (09:00)
[2017-10-07] MEDS: PENTOSAN POLYSULFATE SODIUM 100 MG CAPSULE. PO SCH (09:00)
[2017-10-07] MEDS ORDERED: PSYLLIUM SEED (WITH SUGAR) PACKET. PO PRN (09:00)
[2017-10-07] MEDS: POLYVINYL ALCOHOL 1.4% OPHTH SOLUTION 15ML BOTTLE. OU SCH ×2 (09:00→20:12)
[2017-10-07] MEDS: POTASSIUM CHLORIDE 20 MEQ TABLET.ER. PO SCH ×2 (09:36→20:07)
[2017-10-07] MEDS: LACTOBACILLUS RHAMNOSUS GG 1 CAPSULE. PO SCH ×2 (09:36→17:34)
[2017-10-07] MEDS: busPIRone 15 MG TABLET. PO SCH ×2 (09:36→20:07)
[2017-10-07] MEDS: amLODIPine BESYLATE 5 MG TABLET PO SCH (09:39)
[2017-10-07] MEDS: FUROSEMIDE 40 MG TABLET PO SCH (09:39)
[2017-10-07] MEDS: MAGNESIUM OXIDE 400 MG TABLET PO SCH (09:39)
[2017-10-07] MEDS: DULoxetine HCL 30 MG CAPSULE.DR PO SCH (09:39)
[2017-10-07] MEDS: CALCIUM CARB/VIT D3 500/200 TABLET PO SCH (09:39)
[2017-10-07] MEDS: PANTOPRAZOLE 40 MG TABLET. PO SCH (09:39)
[2017-10-07] MEDS: INSULIN GLARGINE 300 UNITS/3 ML INSULN.PEN. SQ SCH (09:57)
[2017-10-07] MEDS: DICLOFENAC SODIUM 1% TOPICAL GEL 100GM TUBE. TP SCH ×4 (11:24→20:08)
[2017-10-07] MEDS ORDERED: HYDROcodone/APAP 10/325 1 TAB TABLET PO PRN (14:15)
[2017-10-07 16:44] VITALS: BP 130/74
[2017-10-07] MEDS: HYDROcodone/APAP 10/325 1 TAB TABLET PO SCH (17:35)
[2017-10-07] MEDS: PRAMIPEXOLE 0.25 MG TABLET. PO SCH (17:49)
[2017-10-07] MEDS: ATORVASTATIN CALCIUM 10 MG TABLET. PO SCH (20:06)
[2017-10-07] MEDS: METOPROLOL SUCC 24HR ER 50 MG TAB.ER.24H. PO SCH (20:06)
[2017-10-07] MEDS: MELATONIN 3 MG TABLET PO PRN (20:08)
[2017-10-07] MEDS: MIRTAZAPINE 7.5 MG TABLET. PO SCH (20:10)
[2017-10-07] MEDS: PENTOSAN 100 MG PO SCH (20:11)
--- NOTE | 2017-10-07 20:47 | PDOC ---
Exam Note: Red Note: Please also refer to the separate dictated note~for this date of service dictated separately.~Patient seen individually. Discussed the patient with Nursing staff reviewed the chart.~Reviewed interim history and current functioning. Reviewed vital signs,~Labs/ Radiology~and current medications noted below. Continue current treatment with the changes noted in the dictated addendum note Assessment: Vital Signs: Vital Signs Date Time Temp Pulse Resp B/P (MAP) Pulse Ox O2 Delivery O2 Flow Rate FiO2 10/07/17 20:06 65 130/74 10/07/17 18:34 18 10/07/17 16:44 96.6 95 10/07/17 05:32 BiPAP/CPAP 2.0 I&O Intake and Output 10/07/17 07:00 Intake Total 700 ml Balance 700 ml Intake Oral 700 ml Labs: Laboratory Tests Test 10/07/17 08:00 10/07/17 09:49 10/07/17 11:34 10/07/17 16:28 Sodium Level 136 mmol/L (136-145) Potassium Level 4.0 mmol/L (3.5-5.1) Chloride Level 98 mmol/L (98-107) Carbon Dioxide Level 34 mmol/L (21-32) H Anion Gap 4 (6-14) L Blood Urea Nitrogen 18 mg/dL (7-20) Creatinine 1.0 mg/dL (0.6-1.0) Estimated GFR (Cockcroft-Gault) 52.8 Glucose Level 155 mg/dL (70-99) H Calcium Level 9.0 mg/dL (8.5-10.1) Glucose (Fingerstick) 258 mg/dL (70-99) H 166 mg/dL (70-99) H 197 mg/dL (70-99) H Test 10/07/17 19:22 Glucose (Fingerstick) 205 mg/dL (70-99) H Current Medications: Meds: Current Medications Acetaminophen (Tylenol) 650 mg PRN Q6HRS PRN PO PAIN / TEMP Last administered on 10/06/17at 08:58; Start 10/06/17 at 05:00 Multi-Ingredient Ointment (Analgesic [place]) 1 marcio PRN QID PRN TP MUSCLE PAIN; Start 10/06/17 at 05:00 Al Hydroxide/Mg Hydroxide (Mylanta Plus Xs) 15 ml PRN AFTMEALHC PRN PO DYSPEPSIA; Start 10/06/17 at 05:00 Magnesium Hydroxide (Milk Of Magnesia) 2,400 mg PRN QHS PRN PO CONSTIPATION; Start 10/06/17 at 05:00 Lorazepam (Ativan) 1 mg PRN Q6HRS PRN TP ANXIETY / AGITATION; Start 10/06/17 at 05:45 Sertraline HCl (Zoloft) 100 mg DAILY PO Last administered on 10/06/17at 08:54; Start 10/06/17 at 09:00; Stop 10/06/17 at 18:49; Status DC Buspirone HCl (Buspar) 30 mg BID PO Last administered on 10/07/17 20:07; Start 10/06/17 at 09:00 Melatonin 3 mg PRN QHS PRN PO INSOMNIA Last administered on 10/07/17 20:08; Start 10/06/17 at 06:00 Mirtazapine (Remeron) 7.5 mg QHS PO Last administered on 10/07/17 20:10; Start 10/06/17 at 21:00 Olanzapine (ZyPREXA ZYDIS) 1.25 mg PRN Q2HR PRN PO PSYCHOSIS Last administered on 10/07/17 09:36; Start 10/06/17 at 05:45 Potassium Chloride (Klor-Con) 20 meq BID PO Last administered on 10/07/17 20: 07; Start 10/06/17 at 14:00 Acetaminophen (Tylenol) 650 mg PRN Q4HRS PRN PO PAIN / TEMP; Start 10/06/17 at 14:00 Albuterol Sulfate (Ventolin Hfa) 2 puff PRN Q4HRS PRN INH SHORTNESS OF BREATH; Start 10/06/17 at 14:00; Status UNV Calcium/Vitamin D (Oscal D 500mg/ 200uts) 1 tab DAILY PO Last administered on 09:39; Start 10/07/17 at 09:00 Diclofenac Sodium (Voltaren) 1 marcio QID TP Last administered on 10/07/17 20:08 ; Start 10/06/17 at 17:00 Insulin Glargine (Lantus) 10 units DAILY SQ Last administered on 10/07/17 09: 57; Start 10/07/17 at 09:00 Albuterol/ Ipratropium (Duoneb) 3 ml PRN Q6HRS PRN NEB WHEEZING; Start at 14:00 Pentosan Polysulfate Sodium (Elmiron) 100 mg BID PO ; Start 10/06/17 at 21:00; Stop 10/07/17 at 17:02; Status DC Amlodipine Besylate (Norvasc) 5 mg DAILY PO Last administered on 10/07/17at 09: 39; Start 10/07/17 at 09:00 Non-Formulary Medication (Cranberry Conc/ C/Bacill Coag (Cranberry Tablet)) 1 each DAILY PO ; Start 10/07/17 at 09:00; Status UNV Furosemide (Lasix) 40 mg DAILY PO Last administered on 10/07/17at 09:39; Start 10/07/17 at 09:00 Acetaminophen/ Hydrocodone Bitart (Lortab 10/325) 1 tab PRN Q6HRS PRN PO PAIN Last administered on 10/07/17at 11:24; Start 10/06/17 at 14:15; Stop 10/07/17 at 16:39; Status DC Non-Formulary Medication (Immune Glob,Dalia Caprylate(IgG) (Gamunex-C)) 30 gm monthly IJ ; Start 10/06/17 at 14:00; Status UNV Lactobacillus Rhamnosus (Culturelle) 1 cap BIDWMEALS PO Last administered on at 17:34; Start 10/06/17 at 17:00 Atorvastatin Calcium (Lipitor) 5 mg QHS PO Last administered on 10/07/17at 20:06 ; Start 10/06/17 at 21:00 Magnesium Oxide (Magnesium Oxide) 400 mg DAILY PO Last administered on at 09:39; Start 10/07/17 at 09:00 Metoprolol Succinate (Toprol Xl) 100 mg HS PO Last administered on 10/07/17at 20 :06; Start 10/06/17 at 21:00 Non-Formulary Medication (Neomycin/ Polymyxin B Sulf/ Hc (Lhkmajal-Hrrqxzggc-Aa Ear Soln)) 2 drp PRN QID PRN AD ear infections; Start 10/06/17 at 14:00; Status UNV Pantoprazole Sodium (Protonix) 40 mg DAILYAC PO Last administered on 10/07/17at 09:39; Start 10/07/17 at 07:30 Polyethylene Glycol (miraLAX) 17 gm PRN DAILY PRN PO CONSTIPATION; Start at 14:30 Pramipexole Dihydrochloride (miraPEX) 0.125 mg DAILY@1800 PO Last administered on 10/07/17at 17:49; Start 10/06/17 at 18:00 Artificial Tears (Artificial Tears) 1 drop BID OU ; Start 10/06/17 at 21:00 Psyllium Hydrophilic Mucilloid (Metamucil) 1 pkt PRN BID PRN PO CONSTIPATION; Start 10/07/17 at 09:00 Albuterol Sulfate (Ventolin) 2.5 mg PRN Q4HRS PRN NEB SHORTNESS OF BREATH; Start 10/06/17 at 14:15 Duloxetine HCl (Cymbalta) 30 mg DAILY PO Last administered on 10/07/17at 09:39; Start 10/07/17 at 09:00; Stop 10/10/17 at 08:59 Duloxetine HCl (Cymbalta) 60 mg DAILY PO ; Start 10/10/17 at 09:00 Acetaminophen/ Hydrocodone Bitart (Lortab 10/325) 1 tab PRN Q6HRS PRN PO PAIN; Start 10/07/17 at 14:15; Stop 10/07/17 at 17:15; Status DC Non-Formulary Medication 1 ea BID PO Last administered on 10/07/17at 20:11; Start 10/07/17 at 21:00 Acetaminophen/ Hydrocodone Bitart (Lortab 10/325) 1 tab Q6HRS PO Last administered on 10/07/17at 17:35; Start 10/07/17 at 18:00 Active Scripts Active Reported Magnesium (Magnesium Oxide) 400 Mg Capsule 1 Cap PO DAILY Calcium 500 + Vit D 200 Tablet (Calcium Carbonate/Vitamin D3) 1 Each Tablet 1 Each PO DAILY Metamucil Plus Calcium Capsule (Psyllium Husk/Ca Carbonate) 1 Each Capsule 2 Each PO PRN BID PRN Miralax (Polyethylene Glycol 3350) 17 Gm Powd.pack 17 Gm PO PRN DAILY PRN Melatonin 3 Mg Tablet 3 Mg PO PRN QHS PRN Ativan (Lorazepam) 1 Mg Tablet 1 Mg PO PRN Q6HRS PRN Lxithwui-Gdvmtcqoj-Aj Ear Soln (Neomycin/Polymyxin B Sulf/Hc) 10 Ml Solution 2 Drp AD PRN QID PRN Duoneb 0.5-3(2.5) Mg/3 Ml (Albuterol/Ipratropium) 3 Ml Ampul.neb 3 Ml NEB PRN Q6HRS PRN Proair Hfa Inhaler (Albuterol Sulfate) 8.5 Gm Hfa.aer.ad 2 Puff INH PRN Q4HRS PRN [place] 10-325 Tablet (Hydrocodone Bit/Acetaminophen) 1 Each Tablet 1 Tab PO PRN Q6HRS PRN Tylenol (Acetaminophen) 325 Mg Tablet 650 Mg PO PRN Q4HRS PRN Zoloft (Sertraline Hcl) 100 Mg Tablet 100 Mg PO DAILY Elmiron (Pentosan Polysulfate Sodium) 100 Mg Capsule 100 Mg PO BID Mirapex (Pramipexole Di-Hcl) 0.125 Mg Tablet 0.125 Mg PO DAILY@1800 Pantoprazole Sodium 40 Mg Tablet.dr 40 Mg PO DAILYAC Systane 0.3-0.4% Eye Drops (Propylene Glycol/Peg 400) 15 Ml Drops 1 Drp OU BID Mirtazapine 15 Mg Tablet 7.5 Mg PO QHS Metoprolol Succinate ( Xl ) (Metoprolol Succinate) 100 Mg Tab.er.24h 100 Mg PO QHS Lovastatin 20 Mg Tablet 20 Mg PO QHS Probiotic (Lactobacillus Acidophilus) 1 Each Capsule 1 Each PO BIDWMEALS Lantus Solostar (Insulin Glargine,Hum.rec.anlog) 100 Unit/1 Ml Insuln.pen 10 Unit SQ DAILY Gamunex-C (Immune Glob,Dalia Caprylate(IgG)) 40 Gm/400 Ml Vial 30 Gm IJ MONTHLY last dose 09/04/17 Furosemide 40 Mg Tablet 40 Mg PO DAILY Voltaren (Diclofenac Sodium) 100 Gm Gel..gram. 1 Marcio TP QID Cranberry Tablet (Cranberry Conc/C/Bacill Coag) 1 Each Tablet 1 Each PO DAILY Buspirone Hcl 30 Mg Tablet 30 Mg PO BID Amlodipine Besylate 5 Mg Tablet 5 Mg PO DAILY I have reviewed the current psychotropics carefully including drug interactions. Risk benefit ratio favors no change other than as noted in my dictated progress note. Diagnosis: Problems: (1) Anxiety disorder (2) Impulse control disorder (3) Major depressive disorder, recurrent episode NICOLE EDWARDS MD October 07, 2017 20:47
[2017-10-08] MEDS: HYDROcodone/APAP 10/325 1 TAB TABLET PO SCH ×4 (02:22→17:57)
[2017-10-08 05:46] VITALS: BP 118/73
[2017-10-08] MEDS: LACTOBACILLUS RHAMNOSUS GG 1 CAPSULE. PO SCH ×2 (08:15→17:49)
[2017-10-08] MEDS: PANTOPRAZOLE 40 MG TABLET. PO SCH (08:15)
[2017-10-08] MEDS: PENTOSAN 100 MG PO SCH ×2 (08:16→19:59)
[2017-10-08] MEDS: FUROSEMIDE 40 MG TABLET PO SCH (08:17)
[2017-10-08] MEDS: DULoxetine HCL 30 MG CAPSULE.DR PO SCH (08:17)
[2017-10-08] MEDS: busPIRone 15 MG TABLET. PO SCH ×2 (08:17→19:59)
[2017-10-08] MEDS: MAGNESIUM OXIDE 400 MG TABLET PO SCH (08:17)
[2017-10-08] MEDS: POTASSIUM CHLORIDE 20 MEQ TABLET.ER. PO SCH ×2 (08:17→20:00)
[2017-10-08] MEDS: CALCIUM CARB/VIT D3 500/200 TABLET PO SCH (08:18)
[2017-10-08] MEDS: amLODIPine BESYLATE 5 MG TABLET PO SCH (08:18)
[2017-10-08] MEDS: DICLOFENAC SODIUM 1% TOPICAL GEL 100GM TUBE. TP SCH ×4 (08:18→20:02)
[2017-10-08] MEDS: INSULIN GLARGINE 300 UNITS/3 ML INSULN.PEN. SQ SCH (08:20)
[2017-10-08] MEDS: POLYVINYL ALCOHOL 1.4% OPHTH SOLUTION 15ML BOTTLE. OU SCH ×2 (09:00→20:13)
[2017-10-08 15:51] VITALS: BP 120/68
[2017-10-08] MEDS: PRAMIPEXOLE 0.25 MG TABLET. PO SCH (17:48)
[2017-10-08] MEDS ORDERED: traZODone 50 MG TABLET. PO PRN (18:45)
[2017-10-08] MEDS: METOPROLOL SUCC 24HR ER 50 MG TAB.ER.24H. PO SCH (20:01)
[2017-10-08] MEDS: ATORVASTATIN CALCIUM 10 MG TABLET. PO SCH (20:01)
[2017-10-08] MEDS: MIRTAZAPINE 7.5 MG TABLET. PO SCH (20:01)
--- NOTE | 2017-10-08 20:50 | PDOC ---
Exam Note: Red Note: Please also refer to the separate dictated note~for this date of service dictated separately.~Patient seen individually. Discussed the patient with Nursing staff reviewed the chart.~Reviewed interim history and current functioning. Reviewed vital signs,~Labs/ Radiology~and current medications noted below. Continue current treatment with the changes noted in the dictated addendum note Assessment: Vital Signs: Vital Signs Date Time Temp Pulse Resp B/P (MAP) Pulse Ox O2 Delivery O2 Flow Rate FiO2 10/08/17 20:01 75 120/68 10/08/17 17:57 18 10/08/17 15:51 97.5 99 10/08/17 05:46 Room Air 10/07/17 05:32 2.0 I&O Intake and Output 10/08/17 07:00 Intake Total 1200 ml Balance 1200 ml Intake Oral 1200 ml Labs: Laboratory Tests Test 10/08/17 07:34 10/08/17 11:22 10/08/17 16:39 10/08/17 19:09 Glucose (Fingerstick) 195 mg/dL (70-99) H 125 mg/dL (70-99) H 145 mg/dL (70-99) H 188 mg/dL (70-99) H Current Medications: Meds: Current Medications Acetaminophen (Tylenol) 650 mg PRN Q6HRS PRN PO PAIN / TEMP Last administered on 10/06/17at 08:58; Start 10/06/17 at 05:00 Multi-Ingredient Ointment (Analgesic [place]) 1 marcio PRN QID PRN TP MUSCLE PAIN; Start 10/06/17 at 05:00 Al Hydroxide/Mg Hydroxide (Mylanta Plus Xs) 15 ml PRN AFTMEALHC PRN PO DYSPEPSIA; Start 10/06/17 at 05:00 Magnesium Hydroxide (Milk Of Magnesia) 2,400 mg PRN QHS PRN PO CONSTIPATION; Start 10/06/17 at 05:00 Lorazepam (Ativan) 1 mg PRN Q6HRS PRN TP ANXIETY / AGITATION; Start 10/06/17 at 05:45 Sertraline HCl (Zoloft) 100 mg DAILY PO Last administered on 10/06/17at 08:54; Start 10/06/17 at 09:00; Stop 10/06/17 at 18:49; Status DC Buspirone HCl (Buspar) 30 mg BID PO Last administered on 10/08/17 19:59; Start 10/06/17 at 09:00 Melatonin 3 mg PRN QHS PRN PO INSOMNIA Last administered on 10/07/17 20:08; Start 10/06/17 at 06:00 Mirtazapine (Remeron) 7.5 mg QHS PO Last administered on 10/08/17 20:01; Start 10/06/17 at 21:00 Olanzapine (ZyPREXA ZYDIS) 1.25 mg PRN Q2HR PRN PO PSYCHOSIS Last administered on 10/07/17 09:36; Start 10/06/17 at 05:45 Potassium Chloride (Klor-Con) 20 meq BID PO Last administered on 10/08/17 20: 00; Start 10/06/17 at 14:00 Acetaminophen (Tylenol) 650 mg PRN Q4HRS PRN PO PAIN / TEMP; Start 10/06/17 at 14:00 Albuterol Sulfate (Ventolin Hfa) 2 puff PRN Q4HRS PRN INH SHORTNESS OF BREATH; Start 10/06/17 at 14:00; Status UNV Calcium/Vitamin D (Oscal D 500mg/ 200uts) 1 tab DAILY PO Last administered on 08:18; Start 10/07/17 at 09:00 Diclofenac Sodium (Voltaren) 1 marcio QID TP Last administered on 10/08/17at 20:02 ; Start 10/06/17 at 17:00 Insulin Glargine (Lantus) 10 units DAILY SQ Last administered on 10/08/17at 08: 20; Start 10/07/17 at 09:00 Albuterol/ Ipratropium (Duoneb) 3 ml PRN Q6HRS PRN NEB WHEEZING; Start at 14:00 Pentosan Polysulfate Sodium (Elmiron) 100 mg BID PO ; Start 10/06/17 at 21:00; Stop 10/07/17 at 17:02; Status DC Amlodipine Besylate (Norvasc) 5 mg DAILY PO Last administered on 10/08/17at 08: 18; Start 10/07/17 at 09:00 Non-Formulary Medication (Cranberry Conc/ C/Bacill Coag (Cranberry Tablet)) 1 each DAILY PO ; Start 10/07/17 at 09:00; Status UNV Furosemide (Lasix) 40 mg DAILY PO Last administered on 10/08/17at 08:17; Start 10/07/17 at 09:00 Acetaminophen/ Hydrocodone Bitart (Lortab 10/325) 1 tab PRN Q6HRS PRN PO PAIN Last administered on 10/07/17at 11:24; Start 10/06/17 at 14:15; Stop 10/07/17 at 16:39; Status DC Non-Formulary Medication (Immune Glob,Dalia Caprylate(IgG) (Gamunex-C)) 30 gm monthly IJ ; Start 10/06/17 at 14:00; Stop 10/08/17 at 13:19; Status DC Lactobacillus Rhamnosus (Culturelle) 1 cap BIDWMEALS PO Last administered on at 17:49; Start 10/06/17 at 17:00 Atorvastatin Calcium (Lipitor) 5 mg QHS PO Last administered on 10/08/17at 20:01 ; Start 10/06/17 at 21:00 Magnesium Oxide (Magnesium Oxide) 400 mg DAILY PO Last administered on at 08:17; Start 10/07/17 at 09:00 Metoprolol Succinate (Toprol Xl) 100 mg HS PO Last administered on 10/08/17at 20 :01; Start 10/06/17 at 21:00 Non-Formulary Medication (Neomycin/ Polymyxin B Sulf/ Hc (Tfpjlead-Uvgsnyeog-Tp Ear Soln)) 2 drp PRN QID PRN AD ear infections; Start 10/06/17 at 14:00; Status UNV Pantoprazole Sodium (Protonix) 40 mg DAILYAC PO Last administered on 10/08/17at 08:15; Start 10/07/17 at 07:30 Polyethylene Glycol (miraLAX) 17 gm PRN DAILY PRN PO CONSTIPATION; Start at 14:30 Pramipexole Dihydrochloride (miraPEX) 0.125 mg DAILY@1800 PO Last administered on 10/08/17at 17:48; Start 10/06/17 at 18:00 Artificial Tears (Artificial Tears) 1 drop BID OU ; Start 10/06/17 at 21:00 Psyllium Hydrophilic Mucilloid (Metamucil) 1 pkt PRN BID PRN PO CONSTIPATION; Start 10/07/17 at 09:00 Albuterol Sulfate (Ventolin) 2.5 mg PRN Q4HRS PRN NEB SHORTNESS OF BREATH; Start 10/06/17 at 14:15 Duloxetine HCl (Cymbalta) 30 mg DAILY PO Last administered on 10/08/17at 08:17; Start 10/07/17 at 09:00; Stop 10/10/17 at 08:59 Duloxetine HCl (Cymbalta) 60 mg DAILY PO ; Start 10/10/17 at 09:00 Acetaminophen/ Hydrocodone Bitart (Lortab 10/325) 1 tab PRN Q6HRS PRN PO PAIN; Start 10/07/17 at 14:15; Stop 10/07/17 at 17:15; Status DC Non-Formulary Medication 1 ea BID PO Last administered on 10/08/17at 19:59; Start 10/07/17 at 21:00 Acetaminophen/ Hydrocodone Bitart (Lortab 10/325) 1 tab Q6HRS PO Last administered on 10/08/17at 17:57; Start 10/07/17 at 18:00 Trazodone HCl (Desyrel) 50 mg QHS PO Last administered on 10/08/17at 20:00; Start 10/08/17 at 21:00 Trazodone HCl (Desyrel) 50 mg PRN QHS PRN PO INSOMNIA; Start 10/08/17 at 18:45 Active Scripts Active Reported Magnesium (Magnesium Oxide) 400 Mg Capsule 1 Cap PO DAILY Calcium 500 + Vit D 200 Tablet (Calcium Carbonate/Vitamin D3) 1 Each Tablet 1 Each PO DAILY Metamucil Plus Calcium Capsule (Psyllium Husk/Ca Carbonate) 1 Each Capsule 2 Each PO PRN BID PRN Miralax (Polyethylene Glycol 3350) 17 Gm Powd.pack 17 Gm PO PRN DAILY PRN Melatonin 3 Mg Tablet 3 Mg PO PRN QHS PRN Ativan (Lorazepam) 1 Mg Tablet 1 Mg PO PRN Q6HRS PRN Ucmsrffz-Ftjiuvtti-Qg Ear Soln (Neomycin/Polymyxin B Sulf/Hc) 10 Ml Solution 2 Drp AD PRN QID PRN Duoneb 0.5-3(2.5) Mg/3 Ml (Albuterol/Ipratropium) 3 Ml Ampul.neb 3 Ml NEB PRN Q6HRS PRN Proair Hfa Inhaler (Albuterol Sulfate) 8.5 Gm Hfa.aer.ad 2 Puff INH PRN Q4HRS PRN [place] 10-325 Tablet (Hydrocodone Bit/Acetaminophen) 1 Each Tablet 1 Tab PO PRN Q6HRS PRN Tylenol (Acetaminophen) 325 Mg Tablet 650 Mg PO PRN Q4HRS PRN Zoloft (Sertraline Hcl) 100 Mg Tablet 100 Mg PO DAILY Elmiron (Pentosan Polysulfate Sodium) 100 Mg Capsule 100 Mg PO BID Mirapex (Pramipexole Di-Hcl) 0.125 Mg Tablet 0.125 Mg PO DAILY@1800 Pantoprazole Sodium 40 Mg Tablet.dr 40 Mg PO DAILYAC Systane 0.3-0.4% Eye Drops (Propylene Glycol/Peg 400) 15 Ml Drops 1 Drp OU BID Mirtazapine 15 Mg Tablet 7.5 Mg PO QHS Metoprolol Succinate ( Xl ) (Metoprolol Succinate) 100 Mg Tab.er.24h 100 Mg PO QHS Lovastatin 20 Mg Tablet 20 Mg PO QHS Probiotic (Lactobacillus Acidophilus) 1 Each Capsule 1 Each PO BIDWMEALS Lantus Solostar (Insulin Glargine,Hum.rec.anlog) 100 Unit/1 Ml Insuln.pen 10 Unit SQ DAILY Gamunex-C (Immune Glob,Dalia Caprylate(IgG)) 40 Gm/400 Ml Vial 30 Gm IJ MONTHLY last dose 09/04/17 Furosemide 40 Mg Tablet 40 Mg PO DAILY Voltaren (Diclofenac Sodium) 100 Gm Gel..gram. 1 Marcio TP QID Cranberry Tablet (Cranberry Conc/C/Bacill Coag) 1 Each Tablet 1 Each PO DAILY Buspirone Hcl 30 Mg Tablet 30 Mg PO BID Amlodipine Besylate 5 Mg Tablet 5 Mg PO DAILY I have reviewed the current psychotropics carefully including drug interactions. Risk benefit ratio favors no change other than as noted in my dictated progress note. Diagnosis: Problems: (1) Anxiety disorder (2) Impulse control disorder (3) Major depressive disorder, recurrent episode NICOLE EDWARDS MD October 08, 2017 20:50
[2017-10-08] MEDS ORDERED: traZODone 50 MG TABLET. PO SCH (21:00)
[2017-10-09] MEDS: HYDROcodone/APAP 10/325 1 TAB TABLET PO SCH ×4 (00:41→17:36)
--- NOTE | 2017-10-09 05:00 | PN ---
DATE: 10/07/2017 This is a late entry of 10/07/2017 covers elements not covered in my initial note of 10/07/2017. SUBJECTIVE: I met with the patient in the evening. The patient denied suicidal ideation, somewhat confused, believes she is here for seizure disorder. She has been less irritable. REVIEW OF SYSTEMS: Hard of hearing, impaired ambulation with walker. No CV, , pulmonary, eye system symptoms on review. MENTAL STATUS EXAM: Oriented to herself and situation. Speech is coherent, abstraction fair, computation impaired, language function intact. Mood and affect somewhat withdrawn. Denies suicidal ideation. LABORATORY DATA: Reviewed. IMPRESSION: Major depressive disorder, recurrent, severe with suicidal ideation, latter in remission. Rest unchanged; anxiety disorder, unspecified. PLAN: Continue psychotropics mentioned in my initial note. Cymbalta has been gradually increased. MAN Reyna EDWARDS MD DR: RAISA/dave JOB#: [id number] / [id number]
[2017-10-09 06:19] VITALS: BP 128/85
[2017-10-09] MEDS: busPIRone 15 MG TABLET. PO SCH (08:41)
[2017-10-09] MEDS: LACTOBACILLUS RHAMNOSUS GG 1 CAPSULE. PO SCH ×2 (08:41→17:36)
[2017-10-09] MEDS: CALCIUM CARB/VIT D3 500/200 TABLET PO SCH (08:42)
[2017-10-09] MEDS: FUROSEMIDE 40 MG TABLET PO SCH (08:42)
[2017-10-09] MEDS: DULoxetine HCL 30 MG CAPSULE.DR PO SCH (08:42)
[2017-10-09] MEDS: POTASSIUM CHLORIDE 20 MEQ TABLET.ER. PO SCH ×2 (08:42→21:04)
[2017-10-09] MEDS: PANTOPRAZOLE 40 MG TABLET. PO SCH (08:42)
[2017-10-09] MEDS: MAGNESIUM OXIDE 400 MG TABLET PO SCH (08:42)
[2017-10-09] MEDS: amLODIPine BESYLATE 5 MG TABLET PO SCH (08:42)
[2017-10-09] MEDS: PENTOSAN 100 MG PO SCH ×2 (08:45→21:01)
[2017-10-09] MEDS: POLYVINYL ALCOHOL 1.4% OPHTH SOLUTION 15ML BOTTLE. OU SCH ×2 (08:45→21:00)
[2017-10-09] MEDS: DICLOFENAC SODIUM 1% TOPICAL GEL 100GM TUBE. TP SCH ×4 (09:00→21:06)
[2017-10-09] MEDS: INSULIN GLARGINE 300 UNITS/3 ML INSULN.PEN. SQ SCH (10:42)
[2017-10-09 16:32] VITALS: BP 140/76
[2017-10-09] MEDS: PRAMIPEXOLE 0.25 MG TABLET. PO SCH (17:35)
--- NOTE | 2017-10-09 18:36 | PN ---
DATE: 10/08/2017 PSYCHIATRIC PROGRESS NOTE This late entry 10/08/2017 covers elements not covered in my initial note of 10/08/2017. Subjective: Met with the patient in the evening. Overall, the patient remains somewhat withdrawn, depressed, but minimizes the suicidal ideation that prompted her admission and I addressed this at length with her individually. She states she had never tried to hurt herself, but that was more of an expression of how she felt rather than an intent to hurt herself. REVIEW OF SYSTEMS: Hard of hearing. Ambulation is impaired with walker. No CV, , pulmonary, eye system symptoms on review. MENTAL STATUS EXAM: Oriented reasonably to herself, situation. Speech is coherent, abstraction fair, computation impaired, language function intact. Mood and affect still somewhat depressed and she slept poorly last night. LABORATORY DATA: Reviewed. IMPRESSION: Major depressive disorder, recurrent. PLAN: Start trazodone 50 mg at bedtime, september repeat x 1. Maintain Cymbalta, increasing to 60 mg a day. Rest unchanged from initial note. MAN Reyna EDWARDS MD DR: RAISA/dave JOB#: [id number] / [id number]
[2017-10-09] MEDS ORDERED: traZODone 100 MG TABLET. PO PRN (19:45)
--- NOTE | 2017-10-09 20:17 | PDOC ---
Exam Note: Red Note: Please also refer to the separate dictated note~for this date of service dictated separately.~Patient seen individually. Discussed the patient with Nursing staff reviewed the chart.~Reviewed interim history and current functioning. Reviewed vital signs,~Labs/ Radiology~and current medications noted below. Continue current treatment with the changes noted in the dictated addendum note Assessment: Vital Signs: Vital Signs Date Time Temp Pulse Resp B/P (MAP) Pulse Ox O2 Delivery O2 Flow Rate FiO2 10/09/17 17:36 18 96 Room Air 10/09/17 16:32 97.3 68 140/76 (97) 10/07/17 05:32 2.0 I&O Intake and Output 10/09/17 07:00 Intake Total 1080 ml Balance 1080 ml Intake Oral 1080 ml Labs: Laboratory Tests Test 10/09/17 07:34 10/09/17 11:25 10/09/17 16:19 10/09/17 19:13 Glucose (Fingerstick) 176 mg/dL (70-99) H 188 mg/dL (70-99) H 203 mg/dL (70-99) H 219 mg/dL (70-99) H Current Medications: Meds: Current Medications Acetaminophen (Tylenol) 650 mg PRN Q6HRS PRN PO PAIN / TEMP Last administered on 10/06/17at 08:58; Start 10/06/17 at 05:00 Multi-Ingredient Ointment (Analgesic [place]) 1 marcio PRN QID PRN TP MUSCLE PAIN; Start 10/06/17 at 05:00 Al Hydroxide/Mg Hydroxide (Mylanta Plus Xs) 15 ml PRN AFTMEALHC PRN PO DYSPEPSIA Last administered on 10/09/17at 04:34; Start 10/06/17 at 05:00 Magnesium Hydroxide (Milk Of Magnesia) 2,400 mg PRN QHS PRN PO CONSTIPATION; Start 10/06/17 at 05:00 Lorazepam (Ativan) 1 mg PRN Q6HRS PRN TP ANXIETY / AGITATION; Start 10/06/17 at 05:45 Sertraline HCl (Zoloft) 100 mg DAILY PO Last administered on 10/06/17at 08:54; Start 10/06/17 at 09:00; Stop 10/06/17 at 18:49; Status DC Buspirone HCl (Buspar) 30 mg BID PO Last administered on 10/09/17 08:41; Start 10/06/17 at 09:00; Stop 10/09/17 at 19:18; Status DC Melatonin 3 mg PRN QHS PRN PO INSOMNIA Last administered on 10/07/17 20:08; Start 10/06/17 at 06:00 Mirtazapine (Remeron) 7.5 mg QHS PO Last administered on 10/08/17at 20:01; Start 10/06/17 at 21:00 Olanzapine (ZyPREXA ZYDIS) 1.25 mg PRN Q2HR PRN PO PSYCHOSIS Last administered on 10/07/17 09:36; Start 10/06/17 at 05:45 Potassium Chloride (Klor-Con) 20 meq BID PO Last administered on 10/09/17 08: 42; Start 10/06/17 at 14:00 Acetaminophen (Tylenol) 650 mg PRN Q4HRS PRN PO PAIN / TEMP; Start 10/06/17 at 14:00 Albuterol Sulfate (Ventolin Hfa) 2 puff PRN Q4HRS PRN INH SHORTNESS OF BREATH; Start 10/06/17 at 14:00; Status UNV Calcium/Vitamin D (Oscal D 500mg/ 200uts) 1 tab DAILY PO Last administered on at 08:42; Start 10/07/17 at 09:00 Diclofenac Sodium (Voltaren) 1 marcio QID TP Last administered on 10/09/17at 12:41 ; Start 10/06/17 at 17:00 Insulin Glargine (Lantus) 10 units DAILY SQ Last administered on 10/09/17at 10: 42; Start 10/07/17 at 09:00 Albuterol/ Ipratropium (Duoneb) 3 ml PRN Q6HRS PRN NEB WHEEZING; Start at 14:00 Pentosan Polysulfate Sodium (Elmiron) 100 mg BID PO ; Start 10/06/17 at 21:00; Stop 10/07/17 at 17:02; Status DC Amlodipine Besylate (Norvasc) 5 mg DAILY PO Last administered on 10/09/17at 08: 42; Start 10/07/17 at 09:00 Non-Formulary Medication (Cranberry Conc/ C/Bacill Coag (Cranberry Tablet)) 1 each DAILY PO ; Start 10/07/17 at 09:00; Status UNV Furosemide (Lasix) 40 mg DAILY PO Last administered on 10/09/17at 08:42; Start 10/07/17 at 09:00 Acetaminophen/ Hydrocodone Bitart (Lortab 10/325) 1 tab PRN Q6HRS PRN PO PAIN Last administered on 10/07/17at 11:24; Start 10/06/17 at 14:15; Stop 10/07/17 at 16:39; Status DC Non-Formulary Medication (Immune Glob,Dalia Caprylate(IgG) (Gamunex-C)) 30 gm monthly IJ ; Start 10/06/17 at 14:00; Stop 10/08/17 at 13:19; Status DC Lactobacillus Rhamnosus (Culturelle) 1 cap BIDWMEALS PO Last administered on at 17:36; Start 10/06/17 at 17:00 Atorvastatin Calcium (Lipitor) 5 mg QHS PO Last administered on 10/08/17at 20:01 ; Start 10/06/17 at 21:00 Magnesium Oxide (Magnesium Oxide) 400 mg DAILY PO Last administered on 08:42; Start 10/07/17 at 09:00 Metoprolol Succinate (Toprol Xl) 100 mg HS PO Last administered on 10/08/17at 20 :01; Start 10/06/17 at 21:00 Non-Formulary Medication (Neomycin/ Polymyxin B Sulf/ Hc (Hscbsiiz-Misswomoy-Qn Ear Soln)) 2 drp PRN QID PRN AD ear infections; Start 10/06/17 at 14:00; Status UNV Pantoprazole Sodium (Protonix) 40 mg DAILYAC PO Last administered on 10/09/17at 08:42; Start 10/07/17 at 07:30 Polyethylene Glycol (miraLAX) 17 gm PRN DAILY PRN PO CONSTIPATION; Start at 14:30 Pramipexole Dihydrochloride (miraPEX) 0.125 mg DAILY@1800 PO Last administered on 10/09/17at 17:35; Start 10/06/17 at 18:00 Artificial Tears (Artificial Tears) 1 drop BID OU ; Start 10/06/17 at 21:00 Psyllium Hydrophilic Mucilloid (Metamucil) 1 pkt PRN BID PRN PO CONSTIPATION; Start 10/07/17 at 09:00 Albuterol Sulfate (Ventolin) 2.5 mg PRN Q4HRS PRN NEB SHORTNESS OF BREATH; Start 10/06/17 at 14:15 Duloxetine HCl (Cymbalta) 30 mg DAILY PO Last administered on 10/09/17at 08:42; Start 10/07/17 at 09:00; Stop 10/10/17 at 08:59 Duloxetine HCl (Cymbalta) 60 mg DAILY PO ; Start 10/10/17 at 09:00 Acetaminophen/ Hydrocodone Bitart (Lortab 10/325) 1 tab PRN Q6HRS PRN PO PAIN; Start 10/07/17 at 14:15; Stop 10/07/17 at 17:15; Status DC Non-Formulary Medication 1 ea BID PO Last administered on 10/09/17at 08:45; Start 10/07/17 at 21:00 Acetaminophen/ Hydrocodone Bitart (Lortab 10/325) 1 tab Q6HRS PO Last administered on 10/09/17at 17:36; Start 10/07/17 at 18:00 Trazodone HCl (Desyrel) 50 mg QHS PO Last administered on 10/08/17at 20:00; Start 10/08/17 at 21:00; Stop 10/09/17 at 19:18; Status DC Trazodone HCl (Desyrel) 50 mg PRN QHS PRN PO INSOMNIA; Start 10/08/17 at 18:45 ; Stop 10/09/17 at 19:18; Status DC Buspirone HCl (Buspar) 20 mg BID PO ; Start 10/09/17 at 21:00 Trazodone HCl (Desyrel) 100 mg PRN QHS PRN PO INSOMNIA; Start 10/09/17 at 19:45 Trazodone HCl (Desyrel) 100 mg QHS PO ; Start 10/09/17 at 21:00 Pantoprazole Sodium (Protonix) 40 mg DAILYAC PO ; Start 10/10/17 at 07:30 Active Scripts Active Reported Magnesium (Magnesium Oxide) 400 Mg Capsule 1 Cap PO DAILY Calcium 500 + Vit D 200 Tablet (Calcium Carbonate/Vitamin D3) 1 Each Tablet 1 Each PO DAILY Metamucil Plus Calcium Capsule (Psyllium Husk/Ca Carbonate) 1 Each Capsule 2 Each PO PRN BID PRN Miralax (Polyethylene Glycol 3350) 17 Gm Powd.pack 17 Gm PO PRN DAILY PRN Melatonin 3 Mg Tablet 3 Mg PO PRN QHS PRN Ativan (Lorazepam) 1 Mg Tablet 1 Mg PO PRN Q6HRS PRN Mfhuolgq-Wyxdpxmoc-Mh Ear Soln (Neomycin/Polymyxin B Sulf/Hc) 10 Ml Solution 2 Drp AD PRN QID PRN Duoneb 0.5-3(2.5) Mg/3 Ml (Albuterol/Ipratropium) 3 Ml Ampul.neb 3 Ml NEB PRN Q6HRS PRN Proair Hfa Inhaler (Albuterol Sulfate) 8.5 Gm Hfa.aer.ad 2 Puff INH PRN Q4HRS PRN [place] 10-325 Tablet (Hydrocodone Bit/Acetaminophen) 1 Each Tablet 1 Tab PO PRN Q6HRS PRN Tylenol (Acetaminophen) 325 Mg Tablet 650 Mg PO PRN Q4HRS PRN Zoloft (Sertraline Hcl) 100 Mg Tablet 100 Mg PO DAILY Elmiron (Pentosan Polysulfate Sodium) 100 Mg Capsule 100 Mg PO BID Mirapex (Pramipexole Di-Hcl) 0.125 Mg Tablet 0.125 Mg PO DAILY@1800 Pantoprazole Sodium 40 Mg Tablet.dr 40 Mg PO DAILYAC Systane 0.3-0.4% Eye Drops (Propylene Glycol/Peg 400) 15 Ml Drops 1 Drp OU BID Mirtazapine 15 Mg Tablet 7.5 Mg PO QHS Metoprolol Succinate ( Xl ) (Metoprolol Succinate) 100 Mg Tab.er.24h 100 Mg PO QHS Lovastatin 20 Mg Tablet 20 Mg PO QHS Probiotic (Lactobacillus Acidophilus) 1 Each Capsule 1 Each PO BIDWMEALS Lantus Solostar (Insulin Glargine,Hum.rec.anlog) 100 Unit/1 Ml Insuln.pen 10 Unit SQ DAILY Gamunex-C (Immune Glob,Dalia Caprylate(IgG)) 40 Gm/400 Ml Vial 30 Gm IJ MONTHLY last dose 09/04/17 Furosemide 40 Mg Tablet 40 Mg PO DAILY Voltaren (Diclofenac Sodium) 100 Gm Gel..gram. 1 Marcio TP QID Cranberry Tablet (Cranberry Conc/C/Bacill Coag) 1 Each Tablet 1 Each PO DAILY Buspirone Hcl 30 Mg Tablet 30 Mg PO BID Amlodipine Besylate 5 Mg Tablet 5 Mg PO DAILY I have reviewed the current psychotropics carefully including drug interactions. Risk benefit ratio favors no change other than as noted in my dictated progress note. Diagnosis: Problems: (1) Anxiety disorder (2) Impulse control disorder (3) Major depressive disorder, recurrent episode NICOLE EDWARDS MD October 09, 2017 20:17
[2017-10-09] MEDS: METOPROLOL SUCC 24HR ER 50 MG TAB.ER.24H. PO SCH (21:03)
[2017-10-09] MEDS: ATORVASTATIN CALCIUM 10 MG TABLET. PO SCH (21:03)
[2017-10-09] MEDS: MIRTAZAPINE 7.5 MG TABLET. PO SCH (21:03)
[2017-10-09] MEDS: MELATONIN 3 MG TABLET PO PRN (21:04)
[2017-10-09] MEDS: busPIRone 10 MG TABLET. PO SCH (21:05)
[2017-10-09] MEDS: traZODone 100 MG TABLET. PO SCH (21:05)
[2017-10-10] MEDS: HYDROcodone/APAP 10/325 1 TAB TABLET PO SCH ×4 (00:20→17:34)
[2017-10-10 05:59] VITALS: BP 133/65
[2017-10-10] MEDS: PANTOPRAZOLE 40 MG TABLET. PO SCH ×2 (07:30→09:30)
[2017-10-10] MEDS: POLYVINYL ALCOHOL 1.4% OPHTH SOLUTION 15ML BOTTLE. OU SCH ×2 (09:00→20:05)
[2017-10-10] MEDS: LACTOBACILLUS RHAMNOSUS GG 1 CAPSULE. PO SCH ×2 (09:29→16:04)
[2017-10-10] MEDS: CALCIUM CARB/VIT D3 500/200 TABLET PO SCH (09:29)
[2017-10-10] MEDS: POTASSIUM CHLORIDE 20 MEQ TABLET.ER. PO SCH ×2 (09:30→20:03)
[2017-10-10] MEDS: busPIRone 10 MG TABLET. PO SCH ×2 (09:30→20:01)
[2017-10-10] MEDS: amLODIPine BESYLATE 5 MG TABLET PO SCH (09:30)
[2017-10-10] MEDS: MAGNESIUM OXIDE 400 MG TABLET PO SCH (09:30)
[2017-10-10] MEDS: FUROSEMIDE 40 MG TABLET PO SCH (09:30)
[2017-10-10] MEDS: DULoxetine HCL 60 MG CAPSULE.DR PO SCH (09:33)
[2017-10-10] MEDS: INSULIN GLARGINE 300 UNITS/3 ML INSULN.PEN. SQ SCH (09:35)
[2017-10-10] MEDS: DICLOFENAC SODIUM 1% TOPICAL GEL 100GM TUBE. TP SCH ×4 (09:36→20:04)
[2017-10-10] MEDS: PENTOSAN 100 MG PO SCH ×2 (09:42→20:01)
[2017-10-10] MEDS: PRAMIPEXOLE 0.25 MG TABLET. PO SCH (17:34)
[2017-10-10 18:17] VITALS: BP 108/55
[2017-10-10] MEDS: traZODone 100 MG TABLET. PO SCH (20:01)
[2017-10-10] MEDS: METOPROLOL SUCC 24HR ER 50 MG TAB.ER.24H. PO SCH (20:02)
[2017-10-10] MEDS: ATORVASTATIN CALCIUM 10 MG TABLET. PO SCH (20:03)
[2017-10-10] MEDS: MIRTAZAPINE 7.5 MG TABLET. PO SCH (20:03)
--- NOTE | 2017-10-10 22:10 | PDOC ---
Exam Note: Red Note: Please also refer to the separate dictated note~for this date of service dictated separately.~Patient seen individually. Discussed the patient with Nursing staff reviewed the chart.~Reviewed interim history and current functioning. Reviewed vital signs,~Labs/ Radiology~and current medications noted below. Continue current treatment with the changes noted in the dictated addendum note Assessment: Vital Signs: Vital Signs Date Time Temp Pulse Resp B/P (MAP) Pulse Ox O2 Delivery O2 Flow Rate FiO2 10/10/17 20:02 77 108/55 10/10/17 18:34 97 Room Air 10/10/17 18:17 97.8 18 10/07/17 05:32 2.0 I&O Intake and Output 10/10/17 07:00 Intake Total 1080 ml Balance 1080 ml Intake Oral 1080 ml Labs: Laboratory Tests Test 10/10/17 07:37 10/10/17 11:35 10/10/17 17:04 10/10/17 19:12 Glucose (Fingerstick) 156 mg/dL (70-99) H 159 mg/dL (70-99) H 217 mg/dL (70-99) H 168 mg/dL (70-99) H Current Medications: Meds: Current Medications Acetaminophen (Tylenol) 650 mg PRN Q6HRS PRN PO PAIN / TEMP Last administered on 10/06/17at 08:58; Start 10/06/17 at 05:00 Multi-Ingredient Ointment (Analgesic [place]) 1 marcio PRN QID PRN TP MUSCLE PAIN; Start 10/06/17 at 05:00 Al Hydroxide/Mg Hydroxide (Mylanta Plus Xs) 15 ml PRN AFTMEALHC PRN PO DYSPEPSIA Last administered on 10/09/17at 04:34; Start 10/06/17 at 05:00 Magnesium Hydroxide (Milk Of Magnesia) 2,400 mg PRN QHS PRN PO CONSTIPATION; Start 10/06/17 at 05:00 Lorazepam (Ativan) 1 mg PRN Q6HRS PRN TP ANXIETY / AGITATION; Start 10/06/17 at 05:45 Sertraline HCl (Zoloft) 100 mg DAILY PO Last administered on 10/06/17at 08:54; Start 10/06/17 at 09:00; Stop 10/06/17 at 18:49; Status DC Buspirone HCl (Buspar) 30 mg BID PO Last administered on 10/09/17 08:41; Start 10/06/17 at 09:00; Stop 10/09/17 at 19:18; Status DC Melatonin 3 mg PRN QHS PRN PO INSOMNIA Last administered on 10/09/17 21:04; Start 10/06/17 at 06:00 Mirtazapine (Remeron) 7.5 mg QHS PO Last administered on 10/10/17 20:03; Start 10/06/17 at 21:00 Olanzapine (ZyPREXA ZYDIS) 1.25 mg PRN Q2HR PRN PO PSYCHOSIS Last administered on 10/07/17 09:36; Start 10/06/17 at 05:45 Potassium Chloride (Klor-Con) 20 meq BID PO Last administered on 10/10/17 20: 03; Start 10/06/17 at 14:00 Acetaminophen (Tylenol) 650 mg PRN Q4HRS PRN PO PAIN / TEMP; Start 10/06/17 at 14:00 Albuterol Sulfate (Ventolin Hfa) 2 puff PRN Q4HRS PRN INH SHORTNESS OF BREATH; Start 10/06/17 at 14:00; Status UNV Calcium/Vitamin D (Oscal D 500mg/ 200uts) 1 tab DAILY PO Last administered on 09:29; Start 10/07/17 at 09:00 Diclofenac Sodium (Voltaren) 1 marcio QID TP Last administered on 10/10/17 20:04 ; Start 10/06/17 at 17:00 Insulin Glargine (Lantus) 10 units DAILY SQ Last administered on 10/10/17at 09: 35; Start 10/07/17 at 09:00 Albuterol/ Ipratropium (Duoneb) 3 ml PRN Q6HRS PRN NEB WHEEZING; Start at 14:00 Pentosan Polysulfate Sodium (Elmiron) 100 mg BID PO ; Start 10/06/17 at 21:00; Stop 10/07/17 at 17:02; Status DC Amlodipine Besylate (Norvasc) 5 mg DAILY PO Last administered on 10/10/17at 09: 30; Start 10/07/17 at 09:00 Non-Formulary Medication (Cranberry Conc/ C/Bacill Coag (Cranberry Tablet)) 1 each DAILY PO ; Start 10/07/17 at 09:00; Status UNV Furosemide (Lasix) 40 mg DAILY PO Last administered on 10/10/17at 09:30; Start 10/07/17 at 09:00 Acetaminophen/ Hydrocodone Bitart (Lortab 10/325) 1 tab PRN Q6HRS PRN PO PAIN Last administered on 10/07/17at 11:24; Start 10/06/17 at 14:15; Stop 10/07/17 at 16:39; Status DC Non-Formulary Medication (Immune Glob,Dalia Caprylate(IgG) (Gamunex-C)) 30 gm monthly IJ ; Start 10/06/17 at 14:00; Stop 10/08/17 at 13:19; Status DC Lactobacillus Rhamnosus (Culturelle) 1 cap BIDWMEALS PO Last administered on at 16:04; Start 10/06/17 at 17:00 Atorvastatin Calcium (Lipitor) 5 mg QHS PO Last administered on 10/10/17at 20:03 ; Start 10/06/17 at 21:00 Magnesium Oxide (Magnesium Oxide) 400 mg DAILY PO Last administered on 09:30; Start 10/07/17 at 09:00 Metoprolol Succinate (Toprol Xl) 100 mg HS PO Last administered on 10/10/17at 20 :02; Start 10/06/17 at 21:00 Non-Formulary Medication (Neomycin/ Polymyxin B Sulf/ Hc (Yasfuqxq-Cehgrbykk-Yd Ear Soln)) 2 drp PRN QID PRN AD ear infections; Start 10/06/17 at 14:00; Status UNV Pantoprazole Sodium (Protonix) 40 mg DAILYAC PO Last administered on 10/10/17at 09:30; Start 10/07/17 at 07:30; Stop 10/10/17 at 09:45; Status DC Polyethylene Glycol (miraLAX) 17 gm PRN DAILY PRN PO CONSTIPATION; Start at 14:30 Pramipexole Dihydrochloride (miraPEX) 0.125 mg DAILY@1800 PO Last administered on 10/10/17at 17:34; Start 10/06/17 at 18:00 Artificial Tears (Artificial Tears) 1 drop BID OU Last administered on at 21:00; Start 10/06/17 at 21:00 Psyllium Hydrophilic Mucilloid (Metamucil) 1 pkt PRN BID PRN PO CONSTIPATION; Start 10/07/17 at 09:00 Albuterol Sulfate (Ventolin) 2.5 mg PRN Q4HRS PRN NEB SHORTNESS OF BREATH; Start 10/06/17 at 14:15 Duloxetine HCl (Cymbalta) 30 mg DAILY PO Last administered on 10/09/17at 08:42; Start 10/07/17 at 09:00; Stop 10/10/17 at 08:59; Status DC Duloxetine HCl (Cymbalta) 60 mg DAILY PO Last administered on 10/10/17at 09:33; Start 10/10/17 at 09:00 Acetaminophen/ Hydrocodone Bitart (Lortab 10/325) 1 tab PRN Q6HRS PRN PO PAIN; Start 10/07/17 at 14:15; Stop 10/07/17 at 17:15; Status DC Non-Formulary Medication 1 ea BID PO Last administered on 10/10/17at 20:01; Start 10/07/17 at 21:00 Acetaminophen/ Hydrocodone Bitart (Lortab 10/325) 1 tab Q6HRS PO Last administered on 10/10/17at 17:34; Start 10/07/17 at 18:00 Trazodone HCl (Desyrel) 50 mg QHS PO Last administered on 10/08/17at 20:00; Start 10/08/17 at 21:00; Stop 10/09/17 at 19:18; Status DC Trazodone HCl (Desyrel) 50 mg PRN QHS PRN PO INSOMNIA; Start 10/08/17 at 18:45 ; Stop 10/09/17 at 19:18; Status DC Buspirone HCl (Buspar) 20 mg BID PO Last administered on 10/10/17at 20:01; Start 10/09/17 at 21:00 Trazodone HCl (Desyrel) 100 mg PRN QHS PRN PO INSOMNIA; Start 10/09/17 at 19:45 Trazodone HCl (Desyrel) 100 mg QHS PO Last administered on 10/10/17at 20:01; Start 10/09/17 at 21:00 Pantoprazole Sodium (Protonix) 40 mg DAILYAC PO Last administered on 10/10/17at 07:30; Start 10/10/17 at 07:30 Active Scripts Active Reported Magnesium (Magnesium Oxide) 400 Mg Capsule 1 Cap PO DAILY Calcium 500 + Vit D 200 Tablet (Calcium Carbonate/Vitamin D3) 1 Each Tablet 1 Each PO DAILY Metamucil Plus Calcium Capsule (Psyllium Husk/Ca Carbonate) 1 Each Capsule 2 Each PO PRN BID PRN Miralax (Polyethylene Glycol 3350) 17 Gm Powd.pack 17 Gm PO PRN DAILY PRN Melatonin 3 Mg Tablet 3 Mg PO PRN QHS PRN Ativan (Lorazepam) 1 Mg Tablet 1 Mg PO PRN Q6HRS PRN Xphncfml-Jlyeegvne-Uj Ear Soln (Neomycin/Polymyxin B Sulf/Hc) 10 Ml Solution 2 Drp AD PRN QID PRN Duoneb 0.5-3(2.5) Mg/3 Ml (Albuterol/Ipratropium) 3 Ml Ampul.neb 3 Ml NEB PRN Q6HRS PRN Proair Hfa Inhaler (Albuterol Sulfate) 8.5 Gm Hfa.aer.ad 2 Puff INH PRN Q4HRS PRN [place] 10-325 Tablet (Hydrocodone Bit/Acetaminophen) 1 Each Tablet 1 Tab PO PRN Q6HRS PRN Tylenol (Acetaminophen) 325 Mg Tablet 650 Mg PO PRN Q4HRS PRN Zoloft (Sertraline Hcl) 100 Mg Tablet 100 Mg PO DAILY Elmiron (Pentosan Polysulfate Sodium) 100 Mg Capsule 100 Mg PO BID Mirapex (Pramipexole Di-Hcl) 0.125 Mg Tablet 0.125 Mg PO DAILY@1800 Pantoprazole Sodium 40 Mg Tablet.dr 40 Mg PO DAILYAC Systane 0.3-0.4% Eye Drops (Propylene Glycol/Peg 400) 15 Ml Drops 1 Drp OU BID Mirtazapine 15 Mg Tablet 7.5 Mg PO QHS Metoprolol Succinate ( Xl ) (Metoprolol Succinate) 100 Mg Tab.er.24h 100 Mg PO QHS Lovastatin 20 Mg Tablet 20 Mg PO QHS Probiotic (Lactobacillus Acidophilus) 1 Each Capsule 1 Each PO BIDWMEALS Lantus Solostar (Insulin Glargine,Hum.rec.anlog) 100 Unit/1 Ml Insuln.pen 10 Unit SQ DAILY Gamunex-C (Immune Glob,Dalia Caprylate(IgG)) 40 Gm/400 Ml Vial 30 Gm IJ MONTHLY last dose 09/04/17 Furosemide 40 Mg Tablet 40 Mg PO DAILY Voltaren (Diclofenac Sodium) 100 Gm Gel..gram. 1 Marcio TP QID Cranberry Tablet (Cranberry Conc/C/Bacill Coag) 1 Each Tablet 1 Each PO DAILY Buspirone Hcl 30 Mg Tablet 30 Mg PO BID Amlodipine Besylate 5 Mg Tablet 5 Mg PO DAILY I have reviewed the current psychotropics carefully including drug interactions. Risk benefit ratio favors no change other than as noted in my dictated progress note. Diagnosis: Problems: (1) Anxiety disorder (2) Impulse control disorder (3) Major depressive disorder, recurrent episode NICOLE EDWARDS MD October 10, 2017 22:10
[2017-10-11] MEDS ORDERED: ATOR10TA60 PO (00:22)
[2017-10-11] MEDS ORDERED: BUSP10TA PO (00:30)
[2017-10-11] MEDS ORDERED: ALBU18HF IH (00:41)
[2017-10-11] MEDS ORDERED: ALBU2.5V5 NEB (00:41)
[2017-10-11] MEDS ORDERED: PSYL575P4 PO (00:45)
[2017-10-11] MEDS ORDERED: DULO60CA6 PO (00:50)
[2017-10-11] MEDS ORDERED: METH29OI TP (01:02)
[2017-10-11] MEDS ORDERED: MAGN2400 PO (01:05)
[2017-10-11] MEDS ORDERED: MAG30ORA2 PO (01:08)
[2017-10-11] MEDS ORDERED: OLAN5TAB5 PO (01:11)
--- NOTE | 2017-10-11 01:15 | PN ---
DATE: 10/09/2017 This is a late entry of 10/09/2017 covers elements not covered in my initial note of 10/09/2017. SUBJECTIVE: I met with the patient in the evening. The patient slept 3-3/4 hours. She remains somewhat withdrawn. Denies suicidal ideation, still depressed. Refuses CPAP. REVIEW OF SYSTEMS: Hard of hearing. No CV, , pulmonary, eye system symptoms on review. MENTAL STATUS EXAM: Oriented to herself and situation. Speech is coherent, has some latency. Abstraction fair, computation impaired, language function intact. Mood and affect still depressed, but minimizes this. No suicidal ideation. LABORATORY DATA: Reviewed. IMPRESSION: Major depressive disorder, recurrent. PLAN: For her age, The patient is on rather high-dosage of BuSpar 30 mg twice a day. We will reduce to 20 mg twice a day, increase trazodone to 100 mg at bedtime. May repeat x 1. Continue Cymbalta, discontinue the Zoloft. Adjust further as clinically indicated. MAN Reyna EDWARDS MD DR: RAISA/dave JOB#: [id number] / [id number]
[2017-10-11] MEDS ORDERED: POTA20TA4 PO (01:16)
[2017-10-11] MEDS ORDERED: PRAM0.255 PO (01:20)
[2017-10-11] MEDS ORDERED: TRAZ-90 PO ×2 (01:21)
[2017-10-11] MEDS ORDERED: LORAZEPAM TOP (01:23)
[2017-10-11] MEDS: HYDROcodone/APAP 10/325 1 TAB TABLET PO SCH ×3 (05:46→12:32)
[2017-10-11 05:59] VITALS: BP 131/58
[2017-10-11] MEDS: POLYVINYL ALCOHOL 1.4% OPHTH SOLUTION 15ML BOTTLE. OU SCH (09:00)
[2017-10-11] MEDS: DICLOFENAC SODIUM 1% TOPICAL GEL 100GM TUBE. TP SCH ×2 (09:00→12:33)
[2017-10-11 09:18] VITALS: BP 131/58
[2017-10-11] MEDS: amLODIPine BESYLATE 5 MG TABLET PO SCH (09:18)
[2017-10-11] MEDS: DULoxetine HCL 60 MG CAPSULE.DR PO SCH (09:18)
[2017-10-11] MEDS: busPIRone 10 MG TABLET. PO SCH (09:18)
[2017-10-11] MEDS: CALCIUM CARB/VIT D3 500/200 TABLET PO SCH (09:18)
[2017-10-11] MEDS: POTASSIUM CHLORIDE 20 MEQ TABLET.ER. PO SCH (09:19)
[2017-10-11] MEDS: PANTOPRAZOLE 40 MG TABLET. PO SCH (09:19)
[2017-10-11] MEDS: LACTOBACILLUS RHAMNOSUS GG 1 CAPSULE. PO SCH (09:19)
[2017-10-11] MEDS: FUROSEMIDE 40 MG TABLET PO SCH (09:19)
[2017-10-11] MEDS: MAGNESIUM OXIDE 400 MG TABLET PO SCH (09:19)
[2017-10-11] MEDS: PENTOSAN 100 MG PO SCH (09:20)
[2017-10-11] MEDS: INSULIN GLARGINE 300 UNITS/3 ML INSULN.PEN. SQ SCH (09:23)
--- NOTE | 2017-10-11 18:20 | PDOC ---
Exam Note: Red Note: Please also refer to the separate dictated note~for this date of service dictated separately.~Patient seen individually. Discussed the patient with Nursing staff reviewed the chart.~Reviewed interim history and current functioning. Reviewed vital signs,~Labs/ Radiology~and current medications noted below. Continue current treatment with the changes noted in the dictated addendum note Assessment: Vital Signs: Vital Signs Date Time Temp Pulse Resp B/P (MAP) Pulse Ox O2 Delivery O2 Flow Rate FiO2 10/11/17 12:32 18 Room Air 10/11/17 09:19 91 10/11/17 09:18 68 131/58 10/11/17 05:59 97.5 10/07/17 05:32 2.0 I&O Intake and Output 10/11/17 07:00 Intake Total 1080 ml Balance 1080 ml Intake Oral 1080 ml Labs: Laboratory Tests Test 10/10/17 19:12 10/11/17 07:48 10/11/17 11:32 Glucose (Fingerstick) 168 mg/dL (70-99) H 152 mg/dL (70-99) H 225 mg/dL (70-99) H Current Medications: Meds: Current Medications Acetaminophen (Tylenol) 650 mg PRN Q6HRS PRN PO PAIN / TEMP Last administered on 10/06/17at 08:58; Start 10/06/17 at 05:00; Stop 10/11/17 at 14:49; Status DC Multi-Ingredient Ointment (Analgesic [place]) 1 marcio PRN QID PRN TP MUSCLE PAIN; Start 10/06/17 at 05:00; Stop 10/11/17 at 14:49; Status DC Al Hydroxide/Mg Hydroxide (Mylanta Plus Xs) 15 ml PRN AFTMEALHC PRN PO DYSPEPSIA Last administered on 10/09/17at 04:34; Start 10/06/17 at 05:00; Stop at 14:49; Status DC Magnesium Hydroxide (Milk Of Magnesia) 2,400 mg PRN QHS PRN PO CONSTIPATION; Start 10/06/17 at 05:00; Stop 10/11/17 at 14:49; Status DC Lorazepam (Ativan) 1 mg PRN Q6HRS PRN TP ANXIETY / AGITATION; Start 10/06/17 at 05:45; Stop 10/11/17 at 14:49; Status DC Sertraline HCl (Zoloft) 100 mg DAILY PO Last administered on 10/06/17at 08:54; Start 10/06/17 at 09:00; Stop 10/06/17 at 18:49; Status DC Buspirone HCl (Buspar) 30 mg BID PO Last administered on 10/09/17at 08:41; Start 10/06/17 at 09:00; Stop 10/09/17 at 19:18; Status DC Melatonin 3 mg PRN QHS PRN PO INSOMNIA Last administered on 10/09/17at 21:04; Start 10/06/17 at 06:00; Stop 10/11/17 at 14:49; Status DC Mirtazapine (Remeron) 7.5 mg QHS PO Last administered on 10/10/17at 20:03; Start 10/06/17 at 21:00; Stop 10/11/17 at 14:49; Status DC Olanzapine (ZyPREXA ZYDIS) 1.25 mg PRN Q2HR PRN PO PSYCHOSIS Last administered on 10/07/17at 09:36; Start 10/06/17 at 05:45; Stop 10/11/17 at 14:49; Status DC Potassium Chloride (Klor-Con) 20 meq BID PO Last administered on 10/11/17at 09: 19; Start 10/06/17 at 14:00; Stop 10/11/17 at 14:49; Status DC Acetaminophen (Tylenol) 650 mg PRN Q4HRS PRN PO PAIN / TEMP; Start 10/06/17 at 14:00; Stop 10/11/17 at 14:49; Status DC Albuterol Sulfate (Ventolin Hfa) 2 puff PRN Q4HRS PRN INH SHORTNESS OF BREATH; Start 10/06/17 at 14:00; Status UNV Calcium/Vitamin D (Oscal D 500mg/ 200uts) 1 tab DAILY PO Last administered on at 09:18; Start 10/07/17 at 09:00; Stop 10/11/17 at 14:49; Status DC Diclofenac Sodium (Voltaren) 1 marcio QID TP Last administered on 10/11/17at 12:33 ; Start 10/06/17 at 17:00; Stop 10/11/17 at 14:49; Status DC Insulin Glargine (Lantus) 10 units DAILY SQ Last administered on 10/11/17at 09: 23; Start 10/07/17 at 09:00; Stop 10/11/17 at 14:49; Status DC Albuterol/ Ipratropium (Duoneb) 3 ml PRN Q6HRS PRN NEB WHEEZING; Start at 14:00; Stop 10/11/17 at 14:49; Status DC Pentosan Polysulfate Sodium (Elmiron) 100 mg BID PO ; Start 10/06/17 at 21:00; Stop 10/07/17 at 17:02; Status DC Amlodipine Besylate (Norvasc) 5 mg DAILY PO Last administered on 10/11/17at 09: 18; Start 10/07/17 at 09:00; Stop 10/11/17 at 14:49; Status DC Non-Formulary Medication (Cranberry Conc/ C/Bacill Coag (Cranberry Tablet)) 1 each DAILY PO ; Start 10/07/17 at 09:00; Status UNV Furosemide (Lasix) 40 mg DAILY PO Last administered on 10/11/17at 09:19; Start 10/07/17 at 09:00; Stop 10/11/17 at 14:49; Status DC Acetaminophen/ Hydrocodone Bitart (Lortab 10/325) 1 tab PRN Q6HRS PRN PO PAIN Last administered on 10/07/17at 11:24; Start 10/06/17 at 14:15; Stop 10/07/17 at 16:39; Status DC Non-Formulary Medication (Immune Glob,Dalia Caprylate(IgG) (Gamunex-C)) 30 gm monthly IJ ; Start 10/06/17 at 14:00; Stop 10/08/17 at 13:19; Status DC Lactobacillus Rhamnosus (Culturelle) 1 cap BIDWMEALS PO Last administered on at 09:19; Start 10/06/17 at 17:00; Stop 10/11/17 at 14:49; Status DC Atorvastatin Calcium (Lipitor) 5 mg QHS PO Last administered on 10/10/17at 20:03 ; Start 10/06/17 at 21:00; Stop 10/11/17 at 14:49; Status DC Magnesium Oxide (Magnesium Oxide) 400 mg DAILY PO Last administered on at 09:19; Start 10/07/17 at 09:00; Stop 10/11/17 at 14:49; Status DC Metoprolol Succinate (Toprol Xl) 100 mg HS PO Last administered on 10/10/17at 20 :02; Start 10/06/17 at 21:00; Stop 10/11/17 at 14:49; Status DC Non-Formulary Medication (Neomycin/ Polymyxin B Sulf/ Hc (Itovipro-Pashyufdj-Db Ear Soln)) 2 drp PRN QID PRN AD ear infections; Start 10/06/17 at 14:00; Status UNV Pantoprazole Sodium (Protonix) 40 mg DAILYAC PO Last administered on 10/10/17at 09:30; Start 10/07/17 at 07:30; Stop 10/10/17 at 09:45; Status DC Polyethylene Glycol (miraLAX) 17 gm PRN DAILY PRN PO CONSTIPATION; Start at 14:30; Stop 10/11/17 at 14:49; Status DC Pramipexole Dihydrochloride (miraPEX) 0.125 mg DAILY@1800 PO Last administered on 10/10/17at 17:34; Start 10/06/17 at 18:00; Stop 10/11/17 at 14:49; Status DC Artificial Tears (Artificial Tears) 1 drop BID OU Last administered on at 21:00; Start 10/06/17 at 21:00; Stop 10/11/17 at 14:49; Status DC Psyllium Hydrophilic Mucilloid (Metamucil) 1 pkt PRN BID PRN PO CONSTIPATION; Start 10/07/17 at 09:00; Stop 10/11/17 at 14:49; Status DC Albuterol Sulfate (Ventolin) 2.5 mg PRN Q4HRS PRN NEB SHORTNESS OF BREATH; Start 10/06/17 at 14:15; Stop 10/11/17 at 14:49; Status DC Duloxetine HCl (Cymbalta) 30 mg DAILY PO Last administered on 10/09/17at 08:42; Start 10/07/17 at 09:00; Stop 10/10/17 at 08:59; Status DC Duloxetine HCl (Cymbalta) 60 mg DAILY PO Last administered on 10/11/17at 09:18; Start 10/10/17 at 09:00; Stop 10/11/17 at 14:49; Status DC Acetaminophen/ Hydrocodone Bitart (Lortab 10/325) 1 tab PRN Q6HRS PRN PO PAIN; Start 10/07/17 at 14:15; Stop 10/07/17 at 17:15; Status DC Non-Formulary Medication 1 ea BID PO Last administered on 10/11/17at 09:20; Start 10/07/17 at 21:00; Stop 10/11/17 at 14:49; Status DC Acetaminophen/ Hydrocodone Bitart (Lortab 10/325) 1 tab Q6HRS PO Last administered on 10/11/17at 12:32; Start 10/07/17 at 18:00; Stop 10/11/17 at 14:49 ; Status DC Trazodone HCl (Desyrel) 50 mg QHS PO Last administered on 10/08/17at 20:00; Start 10/08/17 at 21:00; Stop 10/09/17 at 19:18; Status DC Trazodone HCl (Desyrel) 50 mg PRN QHS PRN PO INSOMNIA; Start 10/08/17 at 18:45 ; Stop 10/09/17 at 19:18; Status DC Buspirone HCl (Buspar) 20 mg BID PO Last administered on 10/11/17at 09:18; Start 10/09/17 at 21:00; Stop 10/11/17 at 14:49; Status DC Trazodone HCl (Desyrel) 100 mg PRN QHS PRN PO INSOMNIA; Start 10/09/17 at 19:45 ; Stop 10/11/17 at 14:49; Status DC Trazodone HCl (Desyrel) 100 mg QHS PO Last administered on 10/10/17at 20:01; Start 10/09/17 at 21:00; Stop 10/11/17 at 14:49; Status DC Pantoprazole Sodium (Protonix) 40 mg DAILYAC PO Last administered on 10/11/17at 09:19; Start 10/10/17 at 07:30; Stop 10/11/17 at 14:49; Status DC Active Scripts Active Reported [Lorazepam Topical] 1 Mg TOP PRN Q6HRS PRN Trazodone Hcl 100 Mg Tablet 100 Mg PO PRN QHS PRN Trazodone Hcl 100 Mg Tablet 100 Mg PO QHS Mirapex (Pramipexole Di-Hcl) 0.25 Mg Tablet 0.125 Mg PO DAILY18 Klor-Con M20 (Potassium Chloride) 20 Meq Tab.er.prt 20 Meq PO BID Zyprexa Zydis (Olanzapine) 5 Mg Tab.rapdis 1.25 Mg PO PRN Q2HR PRN Mag-Al Plus Xs Suspension (Mag Hydrox/Al Hydrox/Simeth) 30 Ml Oral.susp 15 Ml PO PRN AFTMEALHC PRN Milk Of Magnesia (Magnesium Hydroxide) 2,400 Mg/10 Ml Oral.susp 2,400 Mg PO PRN QHS PRN Analgesic [place] (Methyl Salicylate/Menthol) 28 Gm Oint...g. 1 Marcio TP PRN QID PRN Cymbalta (Duloxetine Hcl) 60 Mg Capsule.dr 60 Mg PO DAILY Metamucil Powder (Psyllium Seed (with Sugar)) 575 Gm Powder 1 Packet PO PRN BID PRN Albuterol Sulfate Neb Soln (Albuterol Sulfate) 2.5 Mg/3 Ml Vial.neb 2.5 Mg NEB PRN Q4HRS PRN Buspirone Hcl 10 Mg Tablet 20 Mg PO BID Atorvastatin Calcium 10 Mg Tablet 5 Mg PO QHS Magnesium (Magnesium Oxide) 400 Mg Capsule 400 Mg PO DAILY Calcium 500 + Vit D 200 Tablet (Calcium Carbonate/Vitamin D3) 1 Each Tablet 1 Each PO DAILY Metamucil Plus Calcium Capsule (Psyllium Husk/Ca Carbonate) 1 Each Capsule 2 Each PO PRN BID PRN Miralax (Polyethylene Glycol 3350) 17 Gm Powd.pack 17 Gm PO PRN DAILY PRN Melatonin 3 Mg Tablet 3 Mg PO PRN QHS PRN Duoneb 0.5-3(2.5) Mg/3 Ml (Albuterol/Ipratropium) 3 Ml Ampul.neb 3 Ml NEB PRN Q6HRS PRN [place] 10-325 Tablet (Hydrocodone Bit/Acetaminophen) 1 Each Tablet 1 Tab PO Q6HRS Tylenol (Acetaminophen) 325 Mg Tablet 650 Mg PO PRN Q4HRS PRN Elmiron (Pentosan Polysulfate Sodium) 100 Mg Capsule 100 Mg PO BID Mirapex (Pramipexole Di-Hcl) 0.125 Mg Tablet 0.125 Mg PO DAILY@1800 Pantoprazole Sodium 40 Mg Tablet.dr 40 Mg PO DAILYAC Systane 0.3-0.4% Eye Drops (Propylene Glycol/Peg 400) 15 Ml Drops 1 Drp OU BID Mirtazapine 15 Mg Tablet 7.5 Mg PO QHS Metoprolol Succinate ( Xl ) (Metoprolol Succinate) 100 Mg Tab.er.24h 100 Mg PO QHS Probiotic (Lactobacillus Acidophilus) 1 Each Capsule 1 Each PO BIDWMEALS Lantus Solostar (Insulin Glargine,Hum.rec.anlog) 100 Unit/1 Ml Insuln.pen 10 Unit SQ DAILY Furosemide 40 Mg Tablet 40 Mg PO DAILY Voltaren (Diclofenac Sodium) 100 Gm Gel..gram. 1 Marcio TP QID Amlodipine Besylate 5 Mg Tablet 5 Mg PO DAILY I have reviewed the current psychotropics carefully including drug interactions. Risk benefit ratio favors no change other than as noted in my dictated progress note. Diagnosis: Problems: (1) Major depressive disorder, recurrent episode (2) Impulse control disorder (3) Anxiety disorder NICOLE EDWARDS MD October 11, 2017 18:20
--- NOTE | 2017-10-12 20:37 | DS ---
DATE OF DISCHARGE: 10/11/2017 DISCHARGE SUMMARY/PSYCHIATRIC PROGRESS NOTE This is a late entry, date of service 10/11/2017, covers elements not covered in my initial note 10/11/2017. REASON FOR ADMISSION: Please refer to the admission history for details. Briefly, the patient is an 86-year-old female referred to us from [facility] by her primary care physician on account of worsening symptoms of depression, making suicidal statements, worsening anxiety after the patient said "if I had a gun, I would use it." The patient certainly denied that when she came to the hospital, minimized her depressive symptoms, but was depressed, anxious and being hard of hearing was significant compromising factor for her as well. SIGNIFICANT FINDINGS AND CLINICAL COURSE: Following admission, the patient was seen daily individually by myself, followed medically per Dr. Delgado/Dr Ramirez. She is quite depressed, withdrawn, denied active suicidal ideation, very hard of hearing and extremely anxious. Adjustments were made in her psychotropics. She has seemed to respond to a combination of BuSpar 20 mg b.i.d. She was previously on 30 mg b.i.d. and at that higher dosage felt it was in fact worsening her symptoms. Remeron was 7.5 mg at bedtime, Ativan 1 mg q.6 hours p.r.n., melatonin 3 mg at bedtime p.r.n., Cymbalta was increased from 30 mg a day to 60 mg a day, trazodone 100 mg at bedtime, may repeat x 1 for insomnia. Gradually, the patient's mood appeared to improve. No suicidal ideation at discharge and she is less anxious prior to discharge. She is hard of hearing. REVIEW OF SYSTEMS: No CV, , pulmonary, eye system symptoms on review. MENTAL STATUS EXAM: Oriented to herself and situation. Speech coherent, abstraction fair, computation impaired, language function intact, attention span short. Mood and affect less depressed and anxious. FINAL DIAGNOSES: Major depressive disorder, recurrent, in partial remission; anxiety disorder, unspecified. Rest unchanged from admission. DISCHARGE MEDICATIONS: Please refer to the . DISCHARGE INSTRUCTIONS: [facility]. NICOLE EDWARDS MD DR: RAISA/dave JOB#: [id number] / [id number]
--- NOTE | 2017-10-13 01:41 | PN ---
DATE: 10/10/2017 This late entry 10/10/2017 covers elements not covered in my initial note 10/10/2017. I met with the patient in the evening. The patient slept 5-1/2 hours. Overall, she has been withdrawn, anxious, somewhat depressed, calm, pleasant. REVIEW OF SYSTEMS: Hard of hearing. No CV, , pulmonary, eye system symptoms on review. She is quite obsessive, fixated on discharge for 10/11/2017. I processed this at length with her. MENTAL STATUS EXAM: Reasonably oriented. Speech coherent, abstraction fair, computation impaired, language function intact. Mood and affect showing improvement. IMPRESSION: Unchanged from initial note. PLAN: Continue psychotropics mentioned in my initial note. MAN Reyna EDWARDS MD DR: RAISA/dave JOB#: [id number] / [id number]
--- NOTE | 2017-10-16 17:17 | EKG ---
[address] [id number] Test Date: 2017-10-07 Test Time: 20:46:17 Pat Name: BASIL MANN Department: Room: [address] [place] [address] Gender: F [employer]: : [id number] Requested By: NICOLE EDWARDS Order Number: [id number] Reading MD: Measurements Intervals [place] Rate: P: CO: QRS: QRSD: T: QT: QTc: Interpretive Statements
== END 2017-10-11 13:15 | disposition home or self-care (01) | DRG 885 ==
LOC: GEROPSY 04:23
PROVIDERS: ADMIT Psychiatry & Neurology Psychiatry; ATTEND Psychiatry & Neurology Psychiatry
PROC: 5A09357 Assistance with Respiratory Ventilation, Less than 24 Consecutive Hours, Continuous Positive Airway Pressure (ICD-10-PCS; principal; 2017-10-07)
DX: F33.2 Major depressive disorder, recurrent severe without psychotic features (principal); I48.91 Unspecified atrial fibrillation; E11.9 Type 2 diabetes mellitus without complications; E87.6 Hypokalemia; F41.9 Anxiety disorder, unspecified; F63.9 Impulse disorder, unspecified; G47.30 Sleep apnea, unspecified; G89.29 Other chronic pain; G47.00 Insomnia, unspecified; M54.5 Low back pain; H91.90 Unspecified hearing loss, unspecified ear; I10 Essential (primary) hypertension; Z53.20 Procedure and treatment not carried out because of patient's decision for unspecified reasons; Z74.01 Bed confinement status; Z79.899 Other long term (current) drug therapy; Z87.01 Personal history of pneumonia (recurrent); Z88.6 Allergy status to analgesic agent; Z88.1 Allergy status to other antibiotic agents; Z88.0 Allergy status to penicillin; Z88.2 Allergy status to sulfonamides; Z88.8 Allergy status to other drugs, medicaments and biological substances
CPT/HCPCS: 36415; 80048; 80053; 80061; 82306; 82607; 82947; 83036; 83540; 83550; 83735; 84436; 84443; 84480; 85025; 86593; 93005; J1815